=== PATIENT | male | born 1950 | race African-American/Black ===

== ENCOUNTER 2017-01-08 10:11 | Inpatient (IN) ==
[~2017-01-08 10:11] MED LIST: ASPIRIN 325 MG TABLET PO ONE; DIAZEPAM 5 MG TABLET PO ONE; MAGNESIUM SULF RIDER 2 GM in PREMIX 1 EACH IV PRN; POTASSIUM CHLORIDE RIDER 10 MEQ in PREMIX 1 EACH IV PRN; SODIUM CHLORIDE 0.9% 1,000 ML IV SCH; diphenhydrAMINE CAP 25 MG CAPSULE PO ONE
[2017-01-08 11:39] LABS: Basophils % 0.6 % (0.0-0.8); Eosinophils # 0.2 10*3/uL (0.0-0.87); Eosinophils % 2.9 % (0.00-10.9); Hematocrit 32.8 VOL% (42.0-52.0); Hemoglobin 9.7 GM/DL (14.0-18.0); Immature Granulocytes % 0.5 %; Immature Granulocytes Absolute 0.03 #; Lymphocytes # 1.6 10*3/uL (1.4-4.0); Lymphocytes % 25.5 % (21.2-54.2); Mean Corpuscular HGB Conc 29.6 GM/DL (32-36); Mean Corpuscular Hemoglobin 24 PG (27-34); Mean Platelet Volume 10.9 FL (9.6-12.0); Monocytes # 0.5 10*3/uL (0.11-0.8); Monocytes % 8.4 % (1.7-12.7); Neutrophils # 3.9 10*3/uL (1.4-7.4); Neutrophils % 62.1 % (38.7-73.9); Platelet Count 265 T/CUMM (130-400); Red Blood Count 4.05 MC/CUMM (3.8-5.5); Red Cell Distribution Width 16.3 % (9.3-17.3); White Blood Count 6.2 T/CUMM (4-12)
[2017-01-08 11:46] LABS: INR 1.2; PT Patient Result 12.5 SECS
[2017-01-08 12:01] LABS: Osmolality,Calculated 288.8 MOS/KG (273-304); Potassium 3.8 MMOL/L (3.5-5.1)
[2017-01-08] MEDS ORDERED: LIDOCAINE 1% 20 ML VIAL ONE (12:27)
[2017-01-08] MEDS ORDERED: HYDROmorphone 2 MG/1 ML VIAL ONE ×2 (12:28→14:27)
[2017-01-08] MEDS ORDERED: MIDAZOLAM 2 MG/2 ML VIAL ONE (12:28)
[2017-01-08] MEDS ORDERED: ASPIRIN 325 MG TABLET ONE (12:32)
[2017-01-08] MEDS ORDERED: diphenhydrAMINE CAP 25 MG CAPSULE ONE (12:32)
[2017-01-08] MEDS ORDERED: DIAZEPAM 5 MG TABLET ONE (12:33)
[2017-01-08] MEDS ORDERED: HEPARIN 5,000 UNIT/1 ML VIAL ONE (13:27)
[2017-01-08] MEDS ORDERED: NITROGLYCERIN DRIP 50 MG/250 ML BOTTLE IV ONE (13:39)
[2017-01-08] MEDS ORDERED: VERAPAMIL 5 MG/2 ML VIAL ONE (13:39)
[2017-01-08] MEDS ORDERED: TICAGRELOR 90 MG TABLET ONE (14:05)
[2017-01-08] MEDS ORDERED: POTASSIUM CHLORIDE RIDER 10 MEQ in PREMIX 1 EACH IV PRN (15:18)
[2017-01-08] MEDS ORDERED: MAGNESIUM SULF RIDER 2 GM in PREMIX 1 EACH IV PRN (15:18)
[2017-01-08] MEDS ORDERED: HYDROmorphone 2 MG/1 ML VIAL IV PRN (15:19)
[2017-01-08] MEDS ORDERED: ONDANSETRON 4 MG/2 ML VIAL IV PRN (15:19)
[2017-01-08] MEDS ORDERED: ZALEPLON 5 MG CAPSULE PO PRN (15:19)
[2017-01-08] MEDS ORDERED: NITROGLYCERIN SL 0.4 MG TABLET SL PRN (15:19)
[2017-01-08] MEDS ORDERED: SODIUM CHLORIDE 0.45% 1,000 ML IV SCH (15:30)
--- NOTE | 2017-01-08 15:43 | Cardiology Operative Report ---
Date of Procedure:: 01/08/17 Post-op diagnosis: same Procedure: Procedures performed: 1. Right iliac angiography with runoff, and Atherectomy of right superficial femoral artery with 2.0 solid CSI [place] 2. Angioplasty of right SFA with 6 x 1 50 balloon 3. Left femoral arteriotomy closure with Angio-Seal device Brief clinical summary. Mr. Love is a 66-year-old with severe limiting right greater than left lower extremity claudication and noted to have short SFA occlusion during his recent heart catheterization. Description of procedure: After obtaining informed consent the patient transferred to the cath over the left groin was prepped and draped in sterile fashion. Next a short 6 [place] sheath was placed in left femoral artery using a modified Seldinger technique after the patient received IV sedation and local anesthetic. Next a AGUILAR catheter with long stiff Glidewire was advanced into the proximal SFA with only moderate difficulty. The sheath was then changed out for a 45 cm destination sheath with the tip ending up just above the bifurcation of the right common femoral artery. The patient was given 6000 units of heparin and then an additional 1000 of heparin with the initial ACT being 228. Later the procedure he was given another 1000 units of heparin with an ACT of 178. The patient was given aspirin this morning. A command wire was advanced with a 0.14 seeker and with some difficulty and was able to traverse the entire right SFA and advance the wire just below the popliteal segment. I then advanced the seeker and removed the wire replacing it with a Viper wire. I then removed the seeker device. Next a 2.0 systolic [place] was advanced to the proximal SFA and slow passes were made with low, medium, and high across a large patient of the proximal and mid SFA across an area of heavy calcification. Next the CSI device was removed and a 6.0 x 150 balloon was advanced into long inflations were made in the mid to distal and mid to proximal SFA for 2-1/2 and 3 minutes respectively. There was a very good angiographic result, the runoff was suboptimal due to three-vessel occlusion below the knee. This was unclear on the initial angiogram due to suboptimal flow. However the largest branch was the posterior tibial which had a short occlusion proximally. I was able to cross this with command wire and advanced to seeker changing out for the are wire again. However was advancing a 1.5 CSI [place] denizen when "around the morning "the entire guide prolapsed into the descending aorta losing wire position. Given the time with fluoroscopy and dye exposure felt was wisest and at this time. We will stage the posterior tibial intervention for a later time. The AGATA on Brilinta and aspirin for the time being. We will watch closely in the hospital overnight. He tolerated the procedure well with no complications only complaining of some back pain at times. Right iliac angiography: The proximal right iliac and recently been angiograms. The right external iliac was widely patent as was the right common femoral artery. The profundus a large vessel that provides extensive collaterals. The SFA has a long area of subtotal calcific disease in the proximal mid to the beginning of the distal segment of the SFA. There is very sluggish flow here but there is more brisk flow to the profundus with the collaterals filling. The anterior tibial artery appears to be occluded proximally. There is a severe stenosis the proximal portion of the posterior tibial artery. Impression: 1. Long heavily calcified subtotal occlusion of the proximal to early distal right SFA, with filling of distal vasculature by profunda collaterals 2. Occluded right proximal anterior tibial artery 3. Severe stenosis of the proximal PT trunk 4. Status post orbital atherectomy of SFA with 2.0 solid CSI [place] 5. Status post angioplasty of SFA with 6.0 by 150 mm balloon with excellent result (20% residual) Recommendation discussion: I believe we achieved very good result with regard to atherectomy and angioplasty Mr. Love's diffuse calcific SFA disease/subtotal occlusion. However his runoff is suboptimal due to a critical proximal posterior tibial artery lesion. There was transient occlusion of it at the end of the procedure , although there are significant collaterals to the distal vessel. I was able to cross it, but loss wire access while trying to perform atherectomy. We will need to stage this procedure, a later time to address his disease below the knee. Anesthesia: minimal conscious sedation Surgeon / Physician: Severiano Smith Metalizing Machine Operator Automatic: other Estimated blood loss: minimal Specimens: none sent Condition: stable Disposition: floor
[2017-01-08] MEDS ORDERED: INFLUENZA VIRUS VACCINE 0.5 ML SYRINGE IM ONE (16:13)
[2017-01-08] MEDS: INSULIN GLARGINE 100 UNIT/ML SUBCUT SCH (19:04)
[2017-01-08] MEDS: CARVEDILOL 6.25 MG TABLET PO SCH (22:06)
[2017-01-08] MEDS: TICAGRELOR 90 MG TABLET PO SCH (22:06)
[2017-01-08] MEDS: GABAPENTIN 300 MG CAPSULE PO SCH (22:06)
[2017-01-08] MEDS: buPROPion SR 150 MG TABLET PO SCH (22:06)
[2017-01-08] MEDS: FAMOTIDINE 20 MG TABLET PO SCH (22:06)
[2017-01-09 05:04] LABS: Basophils # 0.1 10*3/uL (0.0-0.2); Basophils % 0.7 % (0.0-0.8); Eosinophils # 0.3 10*3/uL (0.0-0.87); Eosinophils % 3.4 % (0.00-10.9); Hematocrit 34.5 VOL% (42.0-52.0); Hemoglobin 10.4 GM/DL (14.0-18.0); Immature Granulocytes % 0.5 %; Immature Granulocytes Absolute 0.04 #; Lymphocytes # 1.7 10*3/uL (1.4-4.0); Lymphocytes % 22.5 % (21.2-54.2); Mean Corpuscular HGB Conc 30.1 GM/DL (32-36); Mean Corpuscular Hemoglobin 24 PG (27-34); Mean Platelet Volume 11.5 FL (9.6-12.0); Monocytes # 0.7 10*3/uL (0.11-0.8); Monocytes % 9.8 % (1.7-12.7); Neutrophils # 4.6 10*3/uL (1.4-7.4); Neutrophils % 63.1 % (38.7-73.9); Platelet Count 271 T/CUMM (130-400); Red Blood Count 4.31 MC/CUMM (3.8-5.5); Red Cell Distribution Width 16.5 % (9.3-17.3); White Blood Count 7.3 T/CUMM (4-12)
[2017-01-09 05:25] LABS: Calcium 8.8 MG/DL (8.5-10.1); Osmolality,Calculated 287.3 MOS/KG (273-304); Potassium 4.5 MMOL/L (3.5-5.1)
[2017-01-09] MEDS ORDERED: INSULIN GLARGINE HUM REC ANLOG 80 UNIT SUBCUT SCH (07:30)
[2017-01-09] MEDS ORDERED: FUROSEMIDE 40 MG/4 ML VIAL IV ONE ×3 (08:11→16:26)
--- NOTE | 2017-01-09 08:18 | Discharge Summary ---
<Severiano Smith Jonathan - Last Filed: 01/09/17 08:15> Hospital Course - Hospital Course Hospital Course: Mr. Love was admitted with limiting right lower extreme claudication. He underwent angiography on January 08 and was found to have long heavily calcified proximal to mid and early distal right SFA subtotal disease. This was treated with orbital atherectomy with 2.0 CSI crown. A 6 x 150 mm balloon was used with a very good result. However, he had proximal anterior tibial occlusion, and a critical proximal stenosis of the PT trunk. This occluded after procedure, but was opened with a wire and seeker catheter. I plan to perform atherectomy of the 1.5 crown, but the guide prolapsed into the descending aorta. Given the significant edema dye the patient received ice I was best to stage this intervention. Today his groin looks good and he reports walking to the bathroom with less discomfort. His blood pressure is elevated to 150s will probably need to be managed. He has a little shortness of breath likely related to the IV fluids he received. I will give him one IV Lasix dose prior to discharge. He will need to take his aspirin Brilinta without fail. He 'll need to avoid squatting or lifting for 6 days and I discussed that with he and his . At this time I believe he received maximal benefit discharged home. Specialty Discharge - Follow Up or Referrals Follow up with: Wen Virgen MD [Physician] - 01/21/17 7:15 pm (This is the appt for your sleep study. Go to admissions. Bring home medications and comfortable clothes to sleep in. ) Discharge Plan - Discharge Data Disposition: Disch To Home/Self Care - Discharge Medications New Carvedilol 12.5 mg PO BID #60 tablet Aspirin EC Tab 81 mg PO DAILY #100 tablet Furosemide Tab [Lasix Tab] 80 mg PO BID DIURETIC #60 tablet cephALEXin [Keflex] 500 mg PO Q12HR #10 capsule Continue Metformin HCl 1,000 mg PO BID W/MEALS Gabapentin 300 mg PO BID Amlodipine Besylate/Benazepril [Amlodipine-Benazepril 10-20 mg] 5 mg PO DAILY Dextromethorphan HBr/Chlor-Mal [Coricidin Hbp Cough & Cold Tab] 1 tablet PO BID Insulin Glargine,Hum.rec.anlog [Toujeo SoloStar] 20 units SUBCUT AC SUPPER Insulin Glargine,Hum.rec.anlog [[place]] 80 units SUBCUT AC BREAKFAST HYDROcodone/ACETAMIN 10-325 [[place] 10-325] 1 tablet PO Q6HR PRN PRN Reason: Pain Mild To Moderate (1-7) Spironolactone 25 mg PO DAILY Atorvastatin [Lipitor] 40 mg PO DAILY buPROPion SR [Wellbutrin Sr] 1 tablet PO BID Ticagrelor [Brilinta] 90 mg PO BID 30 Days Discontinued Furosemide 40 mg PO BID Carvedilol [Coreg] 6.25 mg PO BID - Follow Up or Referral Follow Up: Wen Virgen MD [Physician] - 01/21/17 7:15 pm (This is the appt for your sleep study. Go to admissions. Bring home medications and comfortable clothes to sleep in. ) - Forms/Instructions Instructions: Heart Failure (DC), Atherectomy (DC) Exam - Constitutional Vitals: Period Temp Pulse Resp BP Sys/Nagel Pulse Ox Last 24 Hr 97.3 F-98.5 F 69-84 16-22 108-143/64-92 94-100 General appearance: no acute distress, over weight - Head Head exam: Present: normal inspection, normocephalic, atraumatic - Neck Neck exam: Present: normal inspection - Respiratory Respiratory exam: Present: clear to auscultation bilaterally, decreased breath sounds. Absent: stridor, wheezes - Cardiovascular Cardiovascular exam: Present: regular rate and rhythm. Absent: diastolic murmur , rubs - GI/Abdominal GI/Abdominal exam: Present: soft. Absent: tenderness - Extremities Exam Extremities exam: Present: edema, other (right foot is warm with edema and weak to absent pulses (no change); left groin without bruit or hematoma) Discharge Results Procedures and tests throughout hospitalization: Pending Orders 01/10/17 MRSA Surveillence, Inf Control Routine 01/11/17 07:20 CL pacemaker Routine Labs on day of discharge: Labs from last 24 hours 01/12/17 01/12/17 01/12/17 07:39 02:54 02:54 WBC 7.4 RBC 3.99 Hgb 9.5 L Hct 32.4 L MCV 81.2 L MCH 24 L MCHC 29.3 L RDW 16.9 Plt Count 233 MPV 11.4 Neut % (Auto) 69.4 Lymph % (Auto) 17.7 L [place] % (Auto) 8.8 Eos % (Auto) 3.2 Baso % (Auto) 0.5 Neut # (Auto) 5.2 Lymph # (Auto) 1.3 L [place] # (Auto) 0.7 Eos # (Auto) 0.2 Baso # (Auto) 0.0 Immature Gran % 0.4 Nucleated RBC % 0.0 Immature Gran # 0.03 Nucleated RBCs # 0.00 Sodium 143 Potassium 4.3 Chloride 103 Carbon Dioxide 31 Anion Gap 13.3 BUN 18 Creatinine 1.20 GFR Calculation 115 BUN/Creatinine Ratio 15.00 Glucose 97 POC Glucose 66 L Calculated Osmolality 286.0 Calcium 8.8 Magnesium 2.1 01/11/17 01/11/17 01/11/17 20:48 16:22 11:40 WBC RBC Hgb Hct MCV MCH MCHC RDW Plt Count MPV Neut % (Auto) Lymph % (Auto) [place] % (Auto) Eos % (Auto) Baso % (Auto) Neut # (Auto) Lymph # (Auto) [place] # (Auto) Eos # (Auto) Baso # (Auto) Immature Gran % Nucleated RBC % Immature Gran # Nucleated RBCs # Sodium Potassium Chloride Carbon Dioxide Anion Gap BUN Creatinine GFR Calculation BUN/Creatinine Ratio Glucose POC Glucose 175 H 189 H 136 H Calculated Osmolality Calcium Magnesium Preliminary micro results at discharge 01/10/17 Unknown MRSA Surveillance Culture - Preliminary Nares No MRSA isolated. DS: Provider Primary care physician: Paige Marina Consults: 01/08/17 17:52 Consult to Sleep Center [CONS] Routine Reason for Sleep Center: Sleep Center Physician 01/10/17 16:51 Consult to Anesthesiology [CONS] Routine Consulting Provider: Reason for Anesthesiology: Other Consult Comment: Etienne dominguez anes for biV-ICD in lab specialist [id number] Discharging clinician: Severiano Chawla <Jyoti Garcia - Last Filed: 01/09/17 16:06> Discharge Results Procedures and tests throughout hospitalization: Pending Orders 01/10/17 MRSA Surveillence, Inf Control Routine 01/11/17 07:20 CL pacemaker Routine <Balaji Clifton - Last Filed: 01/12/17 09:53> Hospital Course - Hospital Course Hospital Course: He also had persistent CHF symptoms. Due to nonischemic cardiomyopathy, ejection fraction 35%, intermittent AV block, high percent V pacing, despite GDMT, he underwent upgrade of his dual-chamber pacemaker into a NEUROSURGERY RESEARCH DIRECTOR-D. There were no complications. Chest x-ray showed no pneumothorax, normal lead positions. Device interrogation : normal NEUROSURGERY RESEARCH DIRECTOR-D function. Labs remained at his baseline. There was no hematoma. He was also tested for obstructive sleep apnea, with HST. Follow-up with Dr. Virgen's office, results pending. He will follow-up in one week, with dr. Clifton and dr. Smith. Post ICD implant activity limitations and implant site care were discussed. We will continue Keflex 500 mg bid for 5 days for high infectious risk for recent NEUROSURGERY RESEARCH DIRECTOR-D upgrade. MRSA screen was negative. We will keep Lasix 80 mg twice a day for now, due to 3+ lower extremity edema, when this improves, we will decrease the dose. Diagnosis - Discharge Diagnosis (1) Complete AV block Status: Chronic (2) Essential hypertension Status: Chronic (3) Diabetes mellitus Status: Chronic (4) Congestive heart failure, acute Status: Chronic (5) Sleep apnea, unspecified Status: Chronic (6) PVD (peripheral vascular disease) Status: Chronic (7) NICM (nonischemic cardiomyopathy) Status: Chronic Specialty Discharge - Speciality Discharge Instructions Cardiology Instructions: Follow up with dr. Clifton and dr. Smith on 01/17 or 01/18 - please make sure to schedule to see us both at the same time. Needs ICD check , ECG, BMP/Mg Discharge Plan - Discharge Data Condition at Discharge: Stable Discharge Diet: advance to your usual diet Activity: no lifting (for 1 week) Hygiene: keep area(s) dry (keep ICD implant site dry and dressing in place for 1 week. No hot tub or showers for 1 week) Weight Bearing at Discharge: full weight bearing Driving: not until seen by doctor Contact your physician if you experience:: fever over 101, Difficulty voiding, Redness or swelling, Nausea/Vomiting, Shortness of breath, Bleeding, pain uncontrolled by pain medications Exam - Constitutional General appearance: no acute distress, morbidly obese - Head Head exam: Present: normal inspection, normocephalic, atraumatic - Eye Eye exam: Absent: conjunctival injection Pupils: Absent: dilated - ENT ENT exam: Present: normal external ear exam - Neck Neck exam: Present: normal inspection - Respiratory Respiratory exam: Present: clear to auscultation bilaterally - Cardiovascular Cardiovascular exam: Present: regular rate and rhythm. Absent: systolic murmur - GI/Abdominal GI/Abdominal exam: Present: normal bowel sounds - Extremities Exam Extremities exam: Present: normal inspection, normal capillary refill, edema (3+ ) - Neurological Exam Neurological exam: Present: alert, oriented X3 - Psychiatric Psychiatric exam: Present: normal affect, normal mood - Skin Skin exam: Present: normal color, warm, other (no icd hematoma). Absent: cyanosis Discharge Results - Imaging and Cardiology Cardiology Procedure: image reviewed by me, report reviewed by me DS: Provider Expected date of discharge: 01/12/17
[2017-01-09] MEDS: FAMOTIDINE 20 MG TABLET PO SCH ×2 (08:38→21:02)
[2017-01-09] MEDS: ASPIRIN EC 81 MG TABLET PO SCH (08:39)
[2017-01-09] MEDS: ATORVASTATIN 40 MG TABLET PO SCH (08:39)
[2017-01-09] MEDS: CARVEDILOL 6.25 MG TABLET PO SCH ×2 (08:39→21:02)
[2017-01-09] MEDS: GABAPENTIN 300 MG CAPSULE PO SCH ×2 (08:39→21:02)
[2017-01-09] MEDS: buPROPion SR 150 MG TABLET PO SCH ×2 (08:39→21:02)
[2017-01-09] MEDS: TICAGRELOR 90 MG TABLET PO SCH ×2 (08:39→21:02)
--- NOTE | 2017-01-09 14:49 | XRay Report ---
Single view the chest. Indication: Shortness of breath. Bilateral lower extremity edema. Comparison: December 04, 2015. The heart is enlarged, increased from the previous. The pulmonary vasculature is prominent. The interstitial lung markings are prominent. Pleural effusion is suspected. Cardiac hardware remains in satisfactory position. Stable osseous structures. Impression: Findings consistent with congestive heart failure. PROCEDURE INTERPRETED AT [facility] DEPARTMENT OF RADIOLOGY Final Report Signed by: Dr. Maryana Child
--- NOTE | 2017-01-09 16:20 | Sleep Medicine Consult ---
Assessment and Plan (1) Sleep apnea, unspecified Status: Acute Assessment and plan: This patient does have symptoms concerning for sleep apnea and with his comorbidities and current condition, I do think we should proceed with HST evaluation tonight if he is to remain hospitalized. If not, we will set him up for outpatient sleep study evaluation as soon as possible. It is hopeful that if we can establish a diagnosis tonight, we may be able to set him up with CPAP after discharge. Current Visit: Yes (2) Essential hypertension Status: Acute Assessment and plan: The prevalence rate for obstructive sleep apnea patients with hypertension is 35 %. That rate can be as high as 80% in patients who require 4 or more medications for blood pressure control. Current Visit: No (3) Diabetes mellitus Status: Acute Assessment and plan: The prevalence rate for obstructive sleep apnea in patients with type 2 diabetes can be as high as 86%. Those patients with moderate to severe obstructive sleep apnea are at a greater risk for diabetic nephropathy and neuropathy. Compliance with CPAP therapy for these patients can lead to improvement in glycemic control and improvement in insulin sensitivity. Current Visit: No (4) Congestive heart failure, acute Status: Acute Assessment and plan: This patient does have symptoms concerning for acute congestive heart failure. He has had documented normal LV function by previous heart cath but has significant lower extremity edema and has had symptoms of orthopnea and PND. Some of the symptoms could've been untreated obstructive sleep apnea. We'll follow-up on HST results and follow-up with him in the sleep clinic after discharge. Current Visit: No History of Present Illness Chief complaint: sleep apnea History of present illness: Mr. Bernard is a 66 year old male with history of congestive cardiomyopathy who is admitted for elective intervention with peripheral arterial disease. Dr. Smith asked sleep medicine to evaluate him. He does have a history of snoring and abnormal breathing during sleep. He usually retires after 11 p.m. and will awaken about 5 in the morning. He awakens multiple times during the night secondary to shortness of breath or need to urinate. He awakens sometimes and sits bolt upright on the side of the bed because of severe shortness of breath. He does have a history of daytime fatigue and sleepiness and usually will fall asleep when he sits still. He clearly has an [place] sleepiness score of at least 12 or greater. He does have chronic issues with swelling of his lower extremities and is treated for heart disease and hypertension and lower extremity edema. He has had previous pacemaker placed for complete heart block. He did undergo previous heart cath and has normal LV function though he did have evidence of cardiac enlargement. He has never had previous sleep evaluation in the past. He resides in [place], [place]. Home Medications Medication Instructions Recorded Confirmed Type Amlodipine Besylate/Benazepril 5 mg PO DAILY 12/05/15 01/08/17 History [Amlodipine-Benazepril 10-20 mg] Furosemide 40 mg PO BID 12/05/15 01/08/17 History Gabapentin 300 mg PO BID 12/05/15 01/08/17 History Metformin HCl 1,000 mg PO BID W/MEALS 12/05/15 01/08/17 History Atorvastatin [Lipitor] 40 mg PO DAILY 01/08/17 01/08/17 History Dextromethorphan HBr/Chlor-Mal 1 tablet PO BID 01/08/17 01/08/17 History [Coricidin Hbp Cough & Cold Tab] HYDROcodone/ACETAMIN 10-325 [[place] 1 tablet PO Q6HR PRN 01/08/17 01/08/17 History 10-325] Insulin Glargine,Hum.rec.anlog 20 units SUBCUT AC SUPPER 01/08/17 01/08/17 History [Toujeo SoloStar] Insulin Glargine,Hum.rec.anlog 80 units SUBCUT AC BREAKFAST 01/08/17 01/08/17 History [Toujeo SoloStar] Spironolactone 25 mg PO DAILY 01/08/17 01/08/17 History buPROPion SR [Wellbutrin Sr] 1 tablet PO BID 01/08/17 01/08/17 History Aspirin EC Tab 81 mg PO DAILY #100 tablet 01/09/17 Rx Carvedilol 12.5 mg PO BID #60 tablet 01/09/17 Rx Ticagrelor [Brilinta] 90 mg PO BID 30 Days 01/09/17 Rx Allergies Allergy/AdvReac Type Severity Reaction Status Date / Time No Known Allergies Allergy Verified 01/08/17 10:44 Review of systems: Notable for difficulty maintaining sleep, daytime fatigue and sleepiness, lower extremity swelling, nocturia. Exam (Pulmonay) H&P - Constitutional Vitals: Period Temp Pulse Resp BP Sys/Nagel Pulse Ox Last 24 Hr 96.6 F-97.6 F 71-85 14-20 136-169/76-113 98-100 Exam: He is alert and responsive in no acute distress. Pupils equal round reactive to light and accommodation. Extraocular movements intact. Oropharynx with class IV Mallampati exam. Neck is supple without adenopathy or thyromegaly. No supraclavicular adenopathy is noted. Chest with symmetrical breath sounds without focal wheezes, rhonchi, or rales. Cardiac exam reveals a regular rhythm without murmur or gallop. Abdomen obese nontender without palpable hepatosplenomegaly or mass. Extremities with bilateral pitting edema. Neurologically, he is grossly intact. He moved all extremities with good strength and answered questions appropriately. Medical,Surgical,& Family Hx - Medical History Cardio: History of: Hypertension, Pacemaker Neurology: No history of: Seizures Endocrine: History of: Diabetes Mellitus (NIDDM) Respiratory: History of: COPD Musculoskeletal: History of: Back/Neck Problems (lower chronic) - Surgical History Cardiac Surgeries: Sugical HX of: Cardiac Catheterization HEENT Surgeries: Surgical HX of: Eye Surgery Orthopedic Surgeries: Surgical HX of;: Orthopedic Surgery (foot pinning), Spinal Surgery - Family History Family History: Reports;: Family Diabetes (brother), Family Stroke (brother) - Social History Smoking Status: Current every day smoker Frequency of Alcohol Use: None Type of Drug Use: None Results - Labs CBC & BMP: 01/09/17 03:59 01/09/17 03:59
--- NOTE | 2017-01-09 16:28 | Event Note ---
Patient was admitted for elective peripheral vascular procedure. Dr. Smith performed said procedure 01/08/2017. He received IV fluids post procedure. This morning he has had some shortness of breath and orthopnea. He has been given 40 mg of IV Lasix and diuresed little. Chest x-ray was ordered which revealed congestive heart failure. He does have ejection fraction noted to be 35% per most recent echo in November 2016. IV fluids of been discontinued as he was getting hydrated postprocedure. I will restart his for a white count and give an additional 40 mg of IV Lasix. Labs tomorrow with strict I&O. Patient denies chest pain, heaviness or tightness.
[2017-01-09] MEDS: INSULIN GLARGINE 100 UNIT/ML SUBCUT SCH (16:50)
[2017-01-09] MEDS: SPIRONOLACTONE 25 MG TABLET PO SCH (16:50)
[2017-01-10 04:43] LABS: Basophils # 0.1 10*3/uL (0.0-0.2); Eosinophils # 0.3 10*3/uL (0.0-0.87); Eosinophils % 4.1 % (0.00-10.9); Hematocrit 33.2 VOL% (42.0-52.0); Hemoglobin 9.8 GM/DL (14.0-18.0); Immature Granulocytes % 0.5 %; Immature Granulocytes Absolute 0.03 #; Lymphocytes # 1.3 10*3/uL (1.4-4.0); Lymphocytes % 21.2 % (21.2-54.2); Mean Corpuscular HGB Conc 29.5 GM/DL (32-36); Mean Corpuscular Hemoglobin 24 PG (27-34); Mean Platelet Volume 11.2 FL (9.6-12.0); Monocytes # 0.6 10*3/uL (0.11-0.8); Monocytes % 9.5 % (1.7-12.7); Neutrophils # 3.9 10*3/uL (1.4-7.4); Neutrophils % 63.7 % (38.7-73.9); Platelet Count 247 T/CUMM (130-400); Red Cell Distribution Width 16.6 % (9.3-17.3); White Blood Count 6.1 T/CUMM (4-12)
[2017-01-10 05:23] LABS: Calcium 8.7 MG/DL (8.5-10.1); Magnesium 2.2 MG/DL (1.8-2.4)
--- NOTE | 2017-01-10 07:43 | Sleep Medicine Progress Note ---
Assessment and Plan (1) Sleep apnea, unspecified Status: Acute Assessment and plan: Plans will be based on HST results. If positive for obstructive sleep apnea, he will be prescribed an auto titration CPAP device and [facility] will set him up. He will then have follow-up in the sleep clinic for compliance and management of sleep apnea. If his HST is negative, he will be set up for outpatient polysomnography at the next available date. Current Visit: Yes (2) Essential hypertension Status: Acute Current Visit: No (3) Diabetes mellitus Status: Acute Current Visit: No (4) Congestive heart failure, acute Status: Acute Current Visit: No Sleep Medicine Subjective Interval history: She underwent HST evaluation last night. We will review those results. If he does have obstructive sleep apnea, he'll be set up with an AutoPap device and scheduled for follow-up in the sleep clinic. I think it very likely that he will have sleep apnea. If the HST is negative, he will need outpatient polysomnography. Exam (Progress Note) - Constitutional Vitals: Period Temp Pulse Resp BP Sys/Nagel Pulse Ox Last 24 Hr 96.8 F-98.2 F 73-83 16-20 127-159/64-83 95-100 Exam: He is alert and responsive in no distress. Pupils equal round reactive to light and accommodation. Extraocular movements intact. He has a class IV Mallampati exam. Neck is supple without adenopathy or thyromegaly. No supraclavicular adenopathy is noted. Chest with symmetrical breath sounds without focal wheezes, rhonchi, or rales. Cardiac exam reveals a regular rhythm without murmur or gallop. Abdomen obese nontender extremity is with pitting edema. Results - Labs CBC & BMP: 01/10/17 04:11 01/10/17 04:11 Lab Results: I have reviewed the past 24 hour labs
[2017-01-10] MEDS: TICAGRELOR 90 MG TABLET PO SCH ×2 (09:33→20:45)
[2017-01-10] MEDS: ASPIRIN EC 81 MG TABLET PO SCH (09:33)
[2017-01-10] MEDS: CARVEDILOL 6.25 MG TABLET PO SCH (09:33)
[2017-01-10] MEDS: buPROPion SR 150 MG TABLET PO SCH ×2 (09:34→20:45)
[2017-01-10] MEDS: SPIRONOLACTONE 25 MG TABLET PO SCH (09:34)
[2017-01-10] MEDS: FAMOTIDINE 20 MG TABLET PO SCH ×2 (09:34→20:45)
[2017-01-10] MEDS: GABAPENTIN 300 MG CAPSULE PO SCH ×2 (09:34→20:45)
[2017-01-10] MEDS: ATORVASTATIN 40 MG TABLET PO SCH (09:34)
--- NOTE | 2017-01-10 14:09 | Cardiology Progress Note ---
<Jyoti Garcia E - Last Filed: 01/10/17 14:16> Assessment and Plan (1) PVD (peripheral vascular disease) Status: Chronic Assessment and plan: SEE PLAN OF CARE LISTED BELOW Current Visit: Yes (2) NICM (nonischemic cardiomyopathy) Status: Chronic Assessment and plan: SEE PLAN OF CARE LISTED BELOW Current Visit: Yes (3) Sleep apnea, unspecified Status: Chronic Assessment and plan: SEE PLAN OF CARE LISTED BELOW Current Visit: Yes (4) Complete AV block Status: Chronic Assessment and plan: SEE PLAN OF CARE LISTED BELOW Current Visit: No (5) Congestive heart failure, acute Status: Chronic Assessment and plan: SEE PLAN OF CARE LISTED BELOW Current Visit: No (6) Diabetes mellitus Status: Chronic Assessment and plan: SEE PLAN OF CARE LISTED BELOW Current Visit: No (7) Essential hypertension Status: Chronic Assessment and plan: SEE PLAN OF CARE LISTED BELOW Current Visit: No Cardiology - PN: Subj Interval history: Mr. Love was admitted every [address] Smith for elective peripheral vascular procedure for complaints of severe claudication. He underwent angiography and was found to have long heavily calcified proximal to mid and early distal right SFA subtotal disease. This was treated with orbital atherectomy with 2.0 CSI crown. A 6 x 150 mm balloon was used with a very good result. However, he had proximal anterior tibial occlusion, and a critical proximal stenosis of the PT trunk. This occluded after procedure, but was opened with a wire and seeker catheter. I plan to perform atherectomy of the 1.5 crown, but the guide prolapsed into the descending aorta. Given the significant edema, significant amount of dye the patient received it was felt best to stage this intervention. He was kept last evening for significant lower extremity swelling, orthopnea. Chest x-ray revealed congestive heart failure. He was given IV Lasix, oral spironolactone was restarted and he diuresed well. However, he still has a significant amount of lower extremity swelling. His breathing is not quite to his baseline though it is much improved. He reports he did diurese a significant amount of urine done and daily weight was obtained. At this point, he is agreeable to stay one more day for continued IV diuresis. Hopefully, he will be ready for discharge in the morning. She is the pacing chronically. Given the EF of 35% he may be a candidate for about the ICD upgrade. When he sees Dr. Smith in clinic he may consider this option. History of nonischemic cardiomyopathy, EF 35-40% per heart catheterization performed in November 2015. He is also status post pacemaker plantation November 2015 for third degree heart block. ASSESSMENT/PLAN: 1. PVD - See above for future plan of care addressing the PVD in a staged fashion 2. NICM - EF 35% - 40%. 3. CHF, ACUTE ON CHRONIC - secondary to decreased LVEF (35%-40%), NYHA Class III. Continue with IV diuretics, home meds. 4. HYPERTENSION - Increasing betablockade dose for better control of BP 5. DYSLIPIDEMIA - continue lipid lowering agent 6. TOBACCOISM - the merits of cessation of tobacco use was thoroughly discussed for greater than 5 minutes 7. SLEEP DISORDER - appreciate Dr. Virgen's assistance. Exam (Progress Note) - Constitutional Vitals: Period Temp Pulse Resp BP Sys/Nagel Pulse Ox Last 24 Hr 96.8 F-98.2 F 73-83 16-22 127-143/64-83 95-100 Exam: General: Appears well with no apparent distress. Pleasant and cooperative. Appears comfortable. HEENT: PERRL, normocephalic, atraumatic. Mucous membranes moist. No jaundice noted. Conjunctiva moist and clear, sclerae anicteric Neck: Difficult to assess for JVD due to habitus. No thyromegaly or lymphadenopathy noted. No carotid bruit appreciated Cardiac: Regular rate and rhythm. No murmur rub or gallop. Lungs: Inspiratory crackles noted in bases. Continues to using oxygen. Abdomen: Soft, bowel sounds normoactive. Nontender and nondistended. No abdominal bruit or thrill noted. No masses noted. Musculoskeletal: No fluid collection. Decreased range of motion is noted. Extremities: No clubbing, cyanosis noted. 2-3+ pitting edema. Upper extremity pulses 2+. Lower extremity pulses 1+. Capillary refill less than 3 seconds. Skin: No unusual lesions or rashes. No skin breakdown appreciated. Neuro: Awake, alert and oriented 3. Moves all extremities well without hemiparesis or paralysis. No essential tremor is appreciated. Result/EKG - Labs CBC & BMP: 01/10/17 04:11 01/10/17 04:11 Lab Results: I have reviewed the past 24 hour labs Labs: Laboratory Results - last 24 hr 01/09/17 01/09/17 01/10/17 16:00 19:30 04:11 WBC 6.1 RBC 4.10 Hgb 9.8 L Hct 33.2 L MCV 81.0 L MCH 24 L MCHC 29.5 L RDW 16.6 Plt Count 247 MPV 11.2 Neut % (Auto) 63.7 Lymph % (Auto) 21.2 [place] % (Auto) 9.5 Eos % (Auto) 4.1 Baso % (Auto) 1.0 H Neut # (Auto) 3.9 Lymph # (Auto) 1.3 L [place] # (Auto) 0.6 Eos # (Auto) 0.3 Baso # (Auto) 0.1 Immature Gran % 0.5 Nucleated RBC % 0.0 Immature Gran # 0.03 Nucleated RBCs # 0.00 Sodium Potassium Chloride Carbon Dioxide Anion Gap BUN Creatinine GFR Calculation BUN/Creatinine Ratio Glucose POC Glucose 183 H 282 H Calculated Osmolality Calcium Magnesium B-Natriuretic Peptide 01/10/17 01/10/17 01/10/17 04:11 04:11 07:35 WBC RBC Hgb Hct MCV MCH MCHC RDW Plt Count MPV Neut % (Auto) Lymph % (Auto) [place] % (Auto) Eos % (Auto) Baso % (Auto) Neut # (Auto) Lymph # (Auto) [place] # (Auto) Eos # (Auto) Baso # (Auto) Immature Gran % Nucleated RBC % Immature Gran # Nucleated RBCs # Sodium 143 Potassium 4.0 Chloride 105 Carbon Dioxide 29 Anion Gap 13.0 BUN 19 H Creatinine 0.90 GFR Calculation 163 BUN/Creatinine Ratio 21.00 H Glucose 100 POC Glucose 76 Calculated Osmolality 286.0 Calcium 8.7 Magnesium 2.2 B-Natriuretic Peptide 485 H 01/10/17 11:11 WBC RBC Hgb Hct MCV MCH MCHC RDW Plt Count MPV Neut % (Auto) Lymph % (Auto) [place] % (Auto) Eos % (Auto) Baso % (Auto) Neut # (Auto) Lymph # (Auto) [place] # (Auto) Eos # (Auto) Baso # (Auto) Immature Gran % Nucleated RBC % Immature Gran # Nucleated RBCs # Sodium Potassium Chloride Carbon Dioxide Anion Gap BUN Creatinine GFR Calculation BUN/Creatinine Ratio Glucose POC Glucose 139 H Calculated Osmolality Calcium Magnesium B-Natriuretic Peptide - Diagnostic Findings Procedure: Chest x-ray: report reviewed by me - EKG EKG results: interpreted by me EKG shows: sinus rhythm Specialty Discharge - Follow Up or Referrals <Balaji Clifton - Last Filed: 01/10/17 15:58> Exam (Progress Note) - Constitutional Vitals: Period Temp Pulse Resp BP Sys/Nagel Pulse Ox Last 24 Hr 96.8 F-98.2 F 73-83 16-22 127-143/64-83 95-100 Result/EKG - Labs CBC & BMP: 01/10/17 04:11 01/10/17 04:11 Labs: Laboratory Results - last 24 hr 01/09/17 01/09/17 01/10/17 16:00 19:30 04:11 WBC 6.1 RBC 4.10 Hgb 9.8 L Hct 33.2 L MCV 81.0 L MCH 24 L MCHC 29.5 L RDW 16.6 Plt Count 247 MPV 11.2 Neut % (Auto) 63.7 Lymph % (Auto) 21.2 [place] % (Auto) 9.5 Eos % (Auto) 4.1 Baso % (Auto) 1.0 H Neut # (Auto) 3.9 Lymph # (Auto) 1.3 L [place] # (Auto) 0.6 Eos # (Auto) 0.3 Baso # (Auto) 0.1 Immature Gran % 0.5 Nucleated RBC % 0.0 Immature Gran # 0.03 Nucleated RBCs # 0.00 Sodium Potassium Chloride Carbon Dioxide Anion Gap BUN Creatinine GFR Calculation BUN/Creatinine Ratio Glucose POC Glucose 183 H 282 H Calculated Osmolality Calcium Magnesium B-Natriuretic Peptide 01/10/17 01/10/17 01/10/17 04:11 04:11 07:35 WBC RBC Hgb Hct MCV MCH MCHC RDW Plt Count MPV Neut % (Auto) Lymph % (Auto) [place] % (Auto) Eos % (Auto) Baso % (Auto) Neut # (Auto) Lymph # (Auto) [place] # (Auto) Eos # (Auto) Baso # (Auto) Immature Gran % Nucleated RBC % Immature Gran # Nucleated RBCs # Sodium 143 Potassium 4.0 Chloride 105 Carbon Dioxide 29 Anion Gap 13.0 BUN 19 H Creatinine 0.90 GFR Calculation 163 BUN/Creatinine Ratio 21.00 H Glucose 100 POC Glucose 76 Calculated Osmolality 286.0 Calcium 8.7 Magnesium 2.2 B-Natriuretic Peptide 485 H 01/10/17 11:11 WBC RBC Hgb Hct MCV MCH MCHC RDW Plt Count MPV Neut % (Auto) Lymph % (Auto) [place] % (Auto) Eos % (Auto) Baso % (Auto) Neut # (Auto) Lymph # (Auto) [place] # (Auto) Eos # (Auto) Baso # (Auto) Immature Gran % Nucleated RBC % Immature Gran # Nucleated RBCs # Sodium Potassium Chloride Carbon Dioxide Anion Gap BUN Creatinine GFR Calculation BUN/Creatinine Ratio Glucose POC Glucose 139 H Calculated Osmolality Calcium Magnesium B-Natriuretic Peptide
[2017-01-10] MEDS: ENOXAPARIN 40 MG/0.4 ML SYRINGE SUBCUT SCH ×2 (14:51→15:02)
[2017-01-10] MEDS: FUROSEMIDE 40 MG/4 ML VIAL IV SCH ×2 (15:02→15:06)
[2017-01-10] MEDS: INSULIN GLARGINE 100 UNIT/ML SUBCUT SCH (17:09)
[2017-01-10] MEDS: CARVEDILOL 12.5 MG TABLET PO SCH (20:45)
[2017-01-11] MEDS ORDERED: PROPOFOL 200 MG/20 ML VIAL IV ONE (03:04)
[2017-01-11] MEDS ORDERED: ETOMIDATE 20 MG/10 ML VIAL IV ONE (03:04)
[2017-01-11] MEDS ORDERED: ONDANSETRON 4 MG/2 ML VIAL ONE (03:04)
[2017-01-11 03:43] LABS: Basophils # 0.1 10*3/uL (0.0-0.2); Basophils % 0.8 % (0.0-0.8); Eosinophils # 0.2 10*3/uL (0.0-0.87); Eosinophils % 3.9 % (0.00-10.9); Hematocrit 32.1 VOL% (42.0-52.0); Hemoglobin 9.7 GM/DL (14.0-18.0); Immature Granulocytes % 0.5 %; Immature Granulocytes Absolute 0.03 #; Lymphocytes # 1.4 10*3/uL (1.4-4.0); Lymphocytes % 22.8 % (21.2-54.2); Mean Corpuscular HGB Conc 30.2 GM/DL (32-36); Mean Corpuscular Hemoglobin 24 PG (27-34); Mean Corpuscular Volume 78.5 FL (87-102); Mean Platelet Volume 11.5 FL (9.6-12.0); Monocytes # 0.5 10*3/uL (0.11-0.8); Monocytes % 7.8 % (1.7-12.7); Neutrophils % 64.2 % (38.7-73.9); Platelet Count 240 T/CUMM (130-400); Red Blood Count 4.09 MC/CUMM (3.8-5.5); Red Cell Distribution Width 16.6 % (9.3-17.3); White Blood Count 6.2 T/CUMM (4-12)
[2017-01-11 03:52] LABS: Calcium 9.3 MG/DL (8.5-10.1); Magnesium 2.3 MG/DL (1.8-2.4); Osmolality,Calculated 287.1 MOS/KG (273-304); Potassium 4.3 MMOL/L (3.5-5.1)
[2017-01-11 04:09] LABS: INR 1.1; PT Patient Result 12.2 SECS; Partial Thromboplastin Time 29.3 SECS (0-40)
[2017-01-11] MEDS ORDERED: ceFAZolin 1,000 MG VIAL IRRIG ONE (06:00)
[2017-01-11] MEDS ORDERED: HEPARIN/NACL 0.9% 2 UNITS/ML 500 ML IV ONE ×2 (07:33→08:16)
[2017-01-11] MEDS ORDERED: LIDOCAINE 1% 20 ML VIAL ONE ×2 (07:33→09:56)
[2017-01-11] MEDS ORDERED: ceFAZolin 1,000 MG VIAL ONE ×2 (07:34→08:17)
--- NOTE | 2017-01-11 07:41 | History and Physical Update ---
Sedation H&P Update - History and Physical H&P was reviewed, the patient examined and there: are no changes in the patients condition since last H&P was completed. - Dictation Physical: refer to H&P completed by admitting physician - Physical Exam Mental Status: alert and oriented Heart: regular rate and rhythm Lung: clear to auscultation Abdomen: within normal limits Vitals: within normal limits - Sedation Plan for Sedation: MAC Patient Consent: Procedure disscussed with patient and patinet has consented., Risks and benefits were discussed with patient,including infection,, bleeding, injury to surrounding structures, seizure, temporary nerve, Patient understands and accepts potential risks/benefits and agrees to ASA Class: IV Airway Assessment: Class III: Soft palate, base of uvula visible
[2017-01-11] MEDS ORDERED: LIDOCAINE 1%/EPI INJ 20 ML VIAL ONE (09:59)
[2017-01-11] MEDS ORDERED: TISSUE ADHESIVE 1 EACH APPLICATOR TOP ONE (10:19)
[2017-01-11] MEDS ORDERED: oxyCODONE/ACETAMINOPHEN 5-325 MG TABLET PO PRN (10:30)
[2017-01-11] MEDS ORDERED: DEXTROSE 50% 25 GM/50 ML VIAL IV PRN (10:30)
[2017-01-11] MEDS ORDERED: GLUCAGON 1 MG VIAL IM PRN (10:30)
--- NOTE | 2017-01-11 10:45 | Cardiac Defibrillator ---
- Preoperative diagnosis Date of Procedure:: 01/11/17 Preop Diagnosis: non-ischemic dilated cardiomyopathy > 9 months, NYHA class II and III heart failure, and a measured LVEF less than or equal to 35% Pre-op Diagnosis: 1avb, Intermittent 3avb S/P ddd PM, 100% vPACED Post-op diagnosis: same Procedure: PROCEDURAL SUMMARY Left axillary venogram Upgrade to biventricular ICD from DDD pacemaker: addition of RV defibrillator and LV leads, PM generator removal and capping of old RV PM lead, [employer]-D generator implant ICD pocket revision Defibrillator testing (NIPS) Successful procedures, no complications. PLAN Routine post ICD implant activity limitations and nursing care Remove pressure dressing in AM CXR, ECG Ancef 1g iv q8h 2x DIAGNOSES NICM LVEF 35% PAD Intermittent 3AVB s/p DDD PM, 100% Vpaced due to long 1AVB CHF NYHA III PROCEDURE REPORT A timeout was performed before the procedure. The patient was continuously monitored by electrocardiography, pulse oximetry and NIBP. Anesthesia MAC was provided by the anesthesia team. Venogram A left axillary venogram was performed. The left axillary, subclavian veins and the SVC were patent. Biventricular ICD upgrade The left pectoral area was meticulously prepared with ChloroPrep surgical scrub. Sterile draping was applied and Ioban was used to cover the operation site. The image intensifier was draped with a sterile bag and positioned over the patient's chest. After infiltration with 1% lidocaine, an incision was made in the left infraclavicular area, parallel to the deltopectoral groove, above the existing PM generator. The incision was carried down to the capsule, with careful cauterization of all bleeders. The PM was removed from the pocket. The pocket was revised and extended inferomedially using sharp and blunt dissection, hemostasis was achieved. Left axillary access was obtained using a micropuncture kit under fluoroscopic guidance. A long hydrophilic wire was advanced into the IVC and secured to the drape. A second access was obtained in a similar manner and another guidewire was retained. A 10.5Fr peel-away introducer was inserted over a guidewire. The right ventricular defibrillator lead was passed through the introducer and advanced to the right ventricular outflow tract under fluoroscopic guidance. The introducer sheath was then removed. The ventricular lead was positioned in the right ventricular cavity using a curved stiffening stylet. The curved stylet was replaced with a straight stylet which was advanced to the electrode tip and used to deploy the active fixation mechanism. The lead was tested repeatedly for stability. The lead was anchored in the subcutaneous tissue with nonabsorbable suture on the anchoring sleeve near the point of entry to the vein. A 9Fr peelaway introducer was used to insert the CS guide over the long hydrophilic wire. The introducer was then split and withdrawn. Cannulation of the CS ostium was successful, non-selective CS venogram with 5 cc contrast showed a normal CS body. A balloon angiographic catheter was then advanced. Selective CS venogram showed 2 very small lateral vein, a medium posterolateral vein and a medium posteior vein. After the angiographic catheter was removed, the quadripolar CS lead was advanced. A BMW wire was used to engage the posterolateral vein. The lead was then advanced to a wedge position, which was mid lateral. Good pacing threshold and sensing was obtained, with no phrenic nerve capture. The guide was then withdrawn and split. The lead was anchored in the subcutaneous tissue with nonabsorbable suture on the anchoring sleeve near the point of entry to the vein. All lead parameters were then remeasured and stable. There was adequate slack on fluoroscopy in ROLON and [place] positions. The heart borders remained unchanged on fluoroscopy. The old PM generator was disconnected and removed. The old RV PM lead was capped and sutured to the bottom of the pocket. The atrial lead was measured with the external coordinate measuring machine programmer. The [employer]-D generator was then attached to the leads and sealed in the prescribed manner. Excellent hemostasis was noted. The wound was then flushed with Ancef and closed using a double layer of 2-0 absorbable Vicryl sutures followed by a subcuticular running suture with 4-0 Monocryl, then Exofin. A sterile dressing, then a pressure dressing was applied. The device was programmed as detailed below and the patient left the laboratory in good condition. Implants Device: Medtronic Viva [id number] [employer]-D, SN: [id number], location: left infraclavicular New right ventricular lead: Medtronic [id number], SN: [id number], location: RV septum New left ventricular lead: Medtronic 4296-88, SN: [id number], location: mid lateral Existing RA lead: Medtronic 5076-52, SN: [id number], location: RAA The existing RV PM lead was capped, Medtronic 5076-58, SN: [id number] The old DDD PM was removed Medtronic Idalmis GASTELUM, SN: [id number] The system is not MRI compatible. Measurements RA bipolar: threshold 0.4V @ 0.5 ms, P 2.3 mV, impedance 419 Ohm RV bipolar: threshold 0.5V @ 0.5 ms, R 8.8 mV, impedance 601 Ohm LV bipolar: threshold 1.4V @ 0.5 ms, R 24.5 mV, impedance 1147 Ohm Shock impedance: 58 Ohm. Settings DDD 50/130 biv. VF @ 300 ms. Anesthesia: MAC Surgeon / Physician: Balaji Clifton Circular Ripsaw Operator: other (Dyana) Estimated blood loss: minimal Specimens: none sent Condition: stable Disposition: floor - Medications / Follow-up Referrals: Wen Virgen MD [Physician] - 01/21/17 7:15 pm (This is the appt for your sleep study. Go to admissions. Bring home medications and comfortable clothes to sleep in. ) New Prescriptions: Aspirin EC Tab 81 mg PO DAILY #100 tablet Carvedilol 12.5 mg PO BID #60 tablet Ticagrelor [Brilinta] 90 mg PO BID 30 Days
--- NOTE | 2017-01-11 11:05 | XRay Report ---
XR chest 1V portable Indication: Lead placement Comparison: 09 January 2017 Findings: The heart and mediastinum are stable in size and configuration. Pacemaker is been revised, appears within normal limits for positioning. The pulmonary vascularity is increased with bilateral increased interstitial lung density similar to previous. No other lung infiltrates, effusions, pneumothorax or other abnormality is demonstrated. Impression: Pacemaker revision appears within normal limits. No other significant changes. PROCEDURE INTERPRETED AT [facility] DEPARTMENT OF RADIOLOGY Final Report Signed by: Dr. Hammad Juan
[2017-01-11] MEDS: FUROSEMIDE 40 MG/4 ML VIAL IV SCH (12:26)
[2017-01-11] MEDS: ASPIRIN EC 81 MG TABLET PO SCH (12:27)
[2017-01-11] MEDS: SPIRONOLACTONE 25 MG TABLET PO SCH (12:27)
[2017-01-11] MEDS: GABAPENTIN 300 MG CAPSULE PO SCH ×2 (12:27→20:22)
[2017-01-11] MEDS: buPROPion SR 150 MG TABLET PO SCH ×2 (12:28→20:23)
[2017-01-11] MEDS: FAMOTIDINE 20 MG TABLET PO SCH ×2 (12:28→20:23)
[2017-01-11] MEDS: ATORVASTATIN 40 MG TABLET PO SCH (12:28)
[2017-01-11] MEDS: TICAGRELOR 90 MG TABLET PO SCH ×2 (12:34→20:23)
[2017-01-11] MEDS: CARVEDILOL 12.5 MG TABLET PO SCH ×2 (12:34→20:22)
--- NOTE | 2017-01-11 13:00 | EKG Report ---
Stationary ECG Study [facility] Test Date: 01/11/2017 12:59:43 PM Pat Name: CASH JOHNS Department: Room: 282 Gender: M Supervisor Assembly Department: [place] : 1950 Requested by: Chanda Clifton Order Number: [id number] Reading MD: CHANDA CLIFTON Intervals [place] Rate: 81 P: 56 [place]: 164 QRS: 201 QRSD: 168 T: 34 QT: 477 QTc: 515 Interpretive Statements Sinus rhythm with biventricular pacing Electronically Signed On 01-11-17 23:25:04 PRINTING ASSISTANT by CHANDA CLIFTON [email or web address]
[2017-01-11] MEDS: ENOXAPARIN 40 MG/0.4 ML SYRINGE SUBCUT SCH (13:37)
[2017-01-11] MEDS ORDERED: fentaNYL 100 MCG/2 ML VIAL ONE (14:08)
[2017-01-11] MEDS ORDERED: MIDAZOLAM 2 MG/2 ML VIAL ONE (14:08)
--- NOTE | 2017-01-11 15:50 | XRay Report ---
Exam: XR chest 2V Date: 01/11/2017 3:18 PM Indication: CHF Comparison: 01/11/2017 at 10:37 AM Technical: AP standing Findings: Cardiomegaly present with a cardiac pacing device with defibrillator leads and atrial ventricular leads foretold leads are present. Low volume right effusion with mild shunt vascularity and fluid along the minor fissure. Impression: 1. Cardiomegaly with stable appearance of the cardiac plantable defibrillator pacer device and a left-sided approach 2. Mild CHF and shunt vascularity with low-lying effusions right greater than left. PROCEDURE INTERPRETED AT [facility] DEPARTMENT OF RADIOLOGY Final Report Signed by: Dr. James Casanova
[2017-01-11] MEDS: FUROSEMIDE 80 MG TABLET PO SCH (16:53)
[2017-01-11] MEDS: INSULIN GLARGINE 100 UNIT/ML SUBCUT SCH (16:53)
[2017-01-12 03:40] LABS: Basophils % 0.5 % (0.0-0.8); Eosinophils # 0.2 10*3/uL (0.0-0.87); Eosinophils % 3.2 % (0.00-10.9); Hematocrit 32.4 VOL% (42.0-52.0); Hemoglobin 9.5 GM/DL (14.0-18.0); Immature Granulocytes % 0.4 %; Immature Granulocytes Absolute 0.03 #; Lymphocytes # 1.3 10*3/uL (1.4-4.0); Lymphocytes % 17.7 % (21.2-54.2); Mean Corpuscular HGB Conc 29.3 GM/DL (32-36); Mean Corpuscular Hemoglobin 24 PG (27-34); Mean Corpuscular Volume 81.2 FL (87-102); Mean Platelet Volume 11.4 FL (9.6-12.0); Monocytes # 0.7 10*3/uL (0.11-0.8); Monocytes % 8.8 % (1.7-12.7); Neutrophils # 5.2 10*3/uL (1.4-7.4); Neutrophils % 69.4 % (38.7-73.9); Platelet Count 233 T/CUMM (130-400); Red Blood Count 3.99 MC/CUMM (3.8-5.5); Red Cell Distribution Width 16.9 % (9.3-17.3); White Blood Count 7.4 T/CUMM (4-12)
[2017-01-12 04:15] LABS: Calcium 8.8 MG/DL (8.5-10.1); Magnesium 2.1 MG/DL (1.8-2.4); Potassium 4.3 MMOL/L (3.5-5.1)
--- NOTE | 2017-01-12 07:47 | XRay Report ---
XR chest 2V Indication: Lead placement Comparison: 11 January 2017 Findings: The heart and mediastinum are stable in size and configuration. Pacemaker device is unchanged in position. The pulmonary vascularity is improved with bilateral decreased interstitial lung density. No other lung infiltrates, effusions, pneumothorax or other abnormality is demonstrated. Impression: Findings suggest improving cardiac decompensation. PROCEDURE INTERPRETED AT [facility] DEPARTMENT OF RADIOLOGY Final Report Signed by: Dr. Hammad Juan
[2017-01-12] MEDS: FUROSEMIDE 80 MG TABLET PO SCH (09:42)
[2017-01-12] MEDS: SPIRONOLACTONE 25 MG TABLET PO SCH (09:43)
[2017-01-12] MEDS: CARVEDILOL 12.5 MG TABLET PO SCH (09:43)
[2017-01-12] MEDS: GABAPENTIN 300 MG CAPSULE PO SCH (09:43)
[2017-01-12] MEDS: ATORVASTATIN 40 MG TABLET PO SCH (09:43)
[2017-01-12] MEDS: ASPIRIN EC 81 MG TABLET PO SCH (09:43)
[2017-01-12] MEDS: TICAGRELOR 90 MG TABLET PO SCH (09:43)
[2017-01-12] MEDS: buPROPion SR 150 MG TABLET PO SCH (09:44)
[2017-01-12] MEDS: FAMOTIDINE 20 MG TABLET PO SCH (09:44)
[2017-01-12] MEDS ORDERED: INFLUENZA VIRUS VACCINE 0.5 ML SYRINGE IM ONE (10:30)
[2017-01-12 11:45] VITALS: BP 151/77
--- NOTE | 2017-01-12 12:18 | Pathology Report from [facility] ---
ACCESSION # : [id number] PATIENT NAME : Santos Love ORDERING DR : STANLEY ANTOINE MD CLINICAL HX: Severe NICM POST-OP DX: Same SPECIMEN INFO: Pacemaker generator GROSS DESCRIPTION: The specimen is received fresh labeled with the patient's name Santos Love is a pacemaker generator serial #[id number]. Submitted for gross exam only. DIAGNOSIS FOR SANTOS LOVE: Pacemaker generator, GROSS ONLY. SERVICE DATE: 01/11/2017 REPORT DATE: 01/12/2017 PATHOLOGIST: Caitie Landrum M.D. [facility]
== END 2017-01-12 12:15 | disposition home or self-care (01) | DRG 226 ==
LOC: N.CL 10:11 → N.TELEN 10:11 → N.CL 10:20 → N.TELEN 16:29
PROVIDERS: ADMIT Internal Medicine Clinical Cardiac Electrophysiology; ATTEND Internal Medicine Cardiovascular Disease

== ENCOUNTER 2017-10-27 18:44 | Inpatient (IN) ==
[2017-10-27] MEDS ORDERED: SODIUM CHLORIDE 0.9% 1,000 ML IV STA (19:09)
[2017-10-27 19:17] LABS: Basophils % 0.2 % (0.0-0.8); Eosinophils # 0.1 10*3/uL (0.0-0.87); Eosinophils % 0.4 % (0.00-10.9); Hematocrit 37.3 VOL% (42.0-52.0); Hemoglobin 12.3 GM/DL (14.0-18.0); Immature Granulocytes % 0.7 %; Immature Granulocytes Absolute 0.08 #; Lymphocytes # 1.4 10*3/uL (1.4-4.0); Lymphocytes % 11.2 % (21.2-54.2); Mean Corpuscular Hemoglobin 26 PG (27-34); Mean Corpuscular Volume 79.2 FL (87-102); Monocytes # 1.2 10*3/uL (0.11-0.8); Monocytes % 10.1 % (1.7-12.7); Neutrophils # 9.5 10*3/uL (1.4-7.4); Neutrophils % 77.4 % (38.7-73.9); Platelet Count 323 T/CUMM (130-400); Red Blood Count 4.71 MC/CUMM (3.8-5.5); White Blood Count 12.3 T/CUMM (4-12)
[2017-10-27 19:29] LABS: INR 1.1; PT Patient Result 11.2 SECS; Partial Thromboplastin Time 30.5 SECS (0-40)
[2017-10-27 19:43] LABS: Alanine Aminotransferase < 9 U/L (16-61); Alkaline Phosphatase 364 U/L (45-117); Aspartate Amino Transferase 13 U/L (0-37); Blood Urea Nitrogen 72 MG/DL (7-18); Calcium 9.4 MG/DL (8.5-10.1); Glucose 334 MG/DL (74-106); Osmolality,Calculated 290.1 MOS/KG (273-304); Potassium 5.3 MMOL/L (3.5-5.1); Sodium 128 MMOL/L (136-145); Total Protein 7.6 G/DL (6.4-8.3); Troponin I Only < 0.015 NG/ML (0.00-0.045)
[2017-10-27 19:44] LABS: Lactic Acid 2.4 MMOL/L (0.4-2.0)
[2017-10-27] MEDS ORDERED: CLINDAMYCIN INJ 600 MG in PREMIX 1 EACH IV STA (20:21)
[2017-10-27] MEDS ORDERED: CLINDAMYCIN INJ 50 ML IV ONE (21:28)
[2017-10-27] MEDS ORDERED: ACETAMINOPHEN 325 MG TABLET PO PRN (23:28)
[2017-10-27] MEDS ORDERED: GLUCAGON 1 MG VIAL IM PRN (23:28)
[2017-10-27] MEDS ORDERED: DEXTROSE 50% 25 GM/50 ML VIAL IV PRN (23:28)
[2017-10-27] MEDS: DEXTROSE 5% NACL 0.9% 1,000 ML IV SCH (23:35)
[2017-10-28] MEDS: ENOXAPARIN 30 MG/0.3 ML SYRINGE SUBCUT SCH (00:54)
[2017-10-28] MEDS: ONDANSETRON 4 MG/2 ML VIAL IV PRN (01:22)
[2017-10-28] MEDS: PIPERACILLIN/TAZOBACTAM 3.375 MG in SODIUM CHLORIDE 0.9% 100 ML IV SCH ×3 (01:30→16:40)
[2017-10-28 02:52] LABS: Basophils % 0.3 % (0.0-0.8); Eosinophils # 0.1 10*3/uL (0.0-0.87); Eosinophils % 0.5 % (0.00-10.9); Hematocrit 33.6 VOL% (42.0-52.0); Hemoglobin 11.1 GM/DL (14.0-18.0); Immature Granulocytes % 0.8 %; Lymphocytes # 1.4 10*3/uL (1.4-4.0); Lymphocytes % 10.7 % (21.2-54.2); Mean Corpuscular Hemoglobin 26 PG (27-34); Mean Corpuscular Volume 78.3 FL (87-102); Mean Platelet Volume 11.6 FL (9.6-12.0); Monocytes # 1.5 10*3/uL (0.11-0.8); Neutrophils # 9.6 10*3/uL (1.4-7.4); Neutrophils % 75.7 % (38.7-73.9); Platelet Count 306 T/CUMM (130-400); Red Blood Count 4.29 MC/CUMM (3.8-5.5); White Blood Count 12.6 T/CUMM (4-12)
[2017-10-28 03:05] LABS: Calcium 8.9 MG/DL (8.5-10.1); Osmolality,Calculated 290.9 MOS/KG (273-304); Potassium 4.9 MMOL/L (3.5-5.1)
[2017-10-28] MEDS ORDERED: VANCOMYCIN INJ 2,000 MG in SODIUM CHLORIDE 0.9% 500 ML IV SCH (05:00)
[2017-10-28 07:10] LABS: Apearance,Urine CLOUDY (Clear); Bacteria,Urine Occasional /HPF (Few); Bilirubin,Urine Negative (Negative); Blood, Urine Negative (Negative); Glucose,Urine (UA) >=500 mg/dL (Negative); Granular Casts,Urine 7 /LPF (0-1); Hyaline Casts,Urine 5 /LPF (0-3); Ketones,Urine Negative (Negative); Nitrite,Urine Negative (Negative); Protein,Urine Negative; RBC,Urine 1 /HPF (0-4); Urine Color Amber (Yellow); Urine Specific Gravity 1.011 (1.001-1.035); Urine Urobilinogen < 2.0 EU/DL (0.2-1.0); WBC,Urine 2 /HPF (0-6)
[2017-10-28] MEDS: ROSUVASTATIN 20 MG TABLET PO SCH (08:57)
[2017-10-28] MEDS: PANTOPRAZOLE 40 MG TABLET PO SCH (08:57)
[2017-10-28] MEDS: CLOPIDOGREL 75 MG TABLET PO SCH (08:57)
[2017-10-28] MEDS: INSULIN GLARGINE 100 UNIT/ML SUBCUT SCH (08:58)
[2017-10-28] MEDS ORDERED: BENAZEPRIL 10 MG TABLET PO SCH (09:00)
[2017-10-28] MEDS ORDERED: CARVEDILOL 3.125 MG TABLET PO SCH (09:00)
[2017-10-28] MEDS ORDERED: VALSARTAN/HCTZ 160-12.5 MG TABLET PO SCH (09:00)
[2017-10-28] MEDS ORDERED: amLODIPine 5 MG TABLET PO SCH (09:00)
[2017-10-28] MEDS: FUROSEMIDE 80 MG TABLET PO SCH ×2 (09:06→21:03)
[2017-10-28] MEDS ORDERED: CHLORHEXIDINE 4% SOLN 118 ML BOTTLE TOP ONE (11:13)
[2017-10-28] MEDS ORDERED: SKIN HEALING OINT (AQUAPHOR) 50 GM TUBE TOP PRN (11:13)
[2017-10-28] MEDS: DEXTROSE 5% NACL 0.9% 1,000 ML IV SCH (12:35)
[2017-10-28] MEDS ORDERED: INSULIN GLARGINE HUM REC ANLOG 20 UNIT SUBCUT SCH (16:30)
[2017-10-28] MEDS: CARVEDILOL 6.25 MG TABLET PO SCH (21:03)
[2017-10-28] MEDS: SODIUM CHLORIDE 0.9% 1,000 ML IV SCH (21:21)
[2017-10-29] MEDS: PIPERACILLIN/TAZOBACTAM 3.375 MG in SODIUM CHLORIDE 0.9% 100 ML IV SCH ×3 (00:18→15:42)
[2017-10-29] MEDS: ENOXAPARIN 30 MG/0.3 ML SYRINGE SUBCUT SCH ×2 (07:05→23:29)
[2017-10-29] MEDS: INSULIN GLARGINE 100 UNIT/ML SUBCUT SCH (09:27)
[2017-10-29] MEDS: CLOPIDOGREL 75 MG TABLET PO SCH (09:28)
[2017-10-29] MEDS: PANTOPRAZOLE 40 MG TABLET PO SCH (09:28)
[2017-10-29] MEDS: ROSUVASTATIN 20 MG TABLET PO SCH (09:28)
[2017-10-29] MEDS: CARVEDILOL 6.25 MG TABLET PO SCH ×2 (09:28→17:19)
[2017-10-29] MEDS: SODIUM CHLORIDE 0.9% 1,000 ML IV SCH (09:30)
[2017-10-29] MEDS: oxyCODONE IR 5 MG TABLET PO PRN (13:05)
[2017-10-30] MEDS: SODIUM CHLORIDE 0.9% 1,000 ML IV SCH ×2 (02:47→13:52)
[2017-10-30] MEDS ORDERED: VANCOMYCIN INJ 1,000 MG in SODIUM CHLORIDE 0.9% 500 ML IV SCH (05:00)
[2017-10-30] MEDS: oxyCODONE IR 5 MG TABLET PO PRN ×2 (05:16→20:21)
[2017-10-30 07:16] LABS: Basophils # 0.1 10*3/uL (0.0-0.2); Basophils % 0.4 % (0.0-0.8); Eosinophils # 0.1 10*3/uL (0.0-0.87); Eosinophils % 0.7 % (0.00-10.9); Hematocrit 31.3 VOL% (42.0-52.0); Hemoglobin 10.1 GM/DL (14.0-18.0); Immature Granulocytes % 0.8 %; Lymphocytes % 14.6 % (21.2-54.2); Mean Corpuscular HGB Conc 32.3 GM/DL (32-36); Mean Corpuscular Hemoglobin 26 PG (27-34); Mean Corpuscular Volume 80.3 FL (87-102); Mean Platelet Volume 11.1 FL (9.6-12.0); Monocytes # 1.5 10*3/uL (0.11-0.8); Monocytes % 11.1 % (1.7-12.7); Neutrophils # 9.7 10*3/uL (1.4-7.4); Neutrophils % 72.4 % (38.7-73.9); Platelet Count 299 T/CUMM (130-400); Red Cell Distribution Width 15.4 % (9.3-17.3); White Blood Count 13.3 T/CUMM (4-12)
[2017-10-30 07:43] LABS: Calcium 8.5 MG/DL (8.5-10.1); Osmolality,Calculated 283.8 MOS/KG (273-304); Potassium 4.3 MMOL/L (3.5-5.1)
[2017-10-30] MEDS: INSULIN GLARGINE 100 UNIT/ML SUBCUT SCH (07:53)
[2017-10-30] MEDS ORDERED: VANCOMYCIN INJ 1,000 MG in SODIUM CHLORIDE 0.45% 250 ML IV SCH (09:00)
[2017-10-30] MEDS: PENTOXIFYLLINE 400 MG TABLET PO SCH ×3 (09:06→20:20)
[2017-10-30] MEDS: ACETYLCYSTEINE 600 MG CAPSULE PO SCH ×2 (09:06→20:20)
[2017-10-30] MEDS: ROSUVASTATIN 20 MG TABLET PO SCH (09:06)
[2017-10-30] MEDS: PANTOPRAZOLE 40 MG TABLET PO SCH (09:06)
[2017-10-30] MEDS: CARVEDILOL 6.25 MG TABLET PO SCH ×2 (09:06→16:35)
[2017-10-30] MEDS ORDERED: LACTULOSE 20 GM/30 ML UDCUP PO PRN (10:53)
[2017-10-30] MEDS: DOCUSATE SODIUM 100 MG CAPSULE PO PRN (16:32)
[2017-10-30] MEDS: MAGNESIUM HYDROXIDE SUSP 30 ML UDCUP PO PRN (16:32)
[2017-10-30] MEDS ORDERED: CEFTAROLINE 600 MG in SODIUM CHLORIDE 0.9% 50 ML IV SCH (18:00)
[2017-10-30] MEDS: CEFTAROLINE 600 MG in SODIUM CHLORIDE 0.9% 50 ML IV SCH (20:19)
[2017-10-31] MEDS: ENOXAPARIN 30 MG/0.3 ML SYRINGE SUBCUT SCH ×3 (00:01→23:03)
[2017-10-31] MEDS: SODIUM CHLORIDE 0.9% 1,000 ML IV SCH ×2 (03:41→16:22)
[2017-10-31 06:30] LABS: Basophils # 0.1 10*3/uL (0.0-0.2); Basophils % 0.4 % (0.0-0.8); Eosinophils # 0.1 10*3/uL (0.0-0.87); Eosinophils % 0.9 % (0.00-10.9); Hematocrit 30.6 VOL% (42.0-52.0); Hemoglobin 9.8 GM/DL (14.0-18.0); Immature Granulocytes % 0.5 %; Immature Granulocytes Absolute 0.07 #; Lymphocytes # 1.5 10*3/uL (1.4-4.0); Lymphocytes % 11.3 % (21.2-54.2); Mean Corpuscular Hemoglobin 26 PG (27-34); Mean Corpuscular Volume 80.5 FL (87-102); Mean Platelet Volume 11.2 FL (9.6-12.0); Monocytes # 1.4 10*3/uL (0.11-0.8); Monocytes % 10.9 % (1.7-12.7); Neutrophils # 9.7 10*3/uL (1.4-7.4); Platelet Count 287 T/CUMM (130-400); Red Cell Distribution Width 15.5 % (9.3-17.3); White Blood Count 12.8 T/CUMM (4-12)
[2017-10-31 06:53] LABS: Calcium 8.5 MG/DL (8.5-10.1); Magnesium 2.3 MG/DL (1.8-2.4); Osmolality,Calculated 290.5 MOS/KG (273-304); Potassium 4.3 MMOL/L (3.5-5.1)
[2017-10-31] MEDS: INSULIN GLARGINE 100 UNIT/ML SUBCUT SCH (07:53)
[2017-10-31] MEDS ORDERED: SILVER SULFADIAZINE 1% CREAM 400 GM JAR TOP SCH (09:00)
[2017-10-31] MEDS ORDERED: CHLORHEXIDINE 4% SOLN 118 ML BOTTLE TOP ONE (09:03)
[2017-10-31] MEDS: ROSUVASTATIN 20 MG TABLET PO SCH (09:06)
[2017-10-31] MEDS: CEFTAROLINE 600 MG in SODIUM CHLORIDE 0.9% 50 ML IV SCH ×2 (09:06→20:32)
[2017-10-31] MEDS: PANTOPRAZOLE 40 MG TABLET PO SCH (09:06)
[2017-10-31] MEDS: ACETYLCYSTEINE 600 MG CAPSULE PO SCH ×2 (09:06→20:34)
[2017-10-31] MEDS: DOCUSATE SODIUM 100 MG CAPSULE PO PRN (09:06)
[2017-10-31] MEDS: PENTOXIFYLLINE 400 MG TABLET PO SCH ×3 (09:06→20:31)
[2017-10-31] MEDS: CARVEDILOL 6.25 MG TABLET PO SCH ×2 (09:06→16:22)
[2017-10-31] MEDS: oxyCODONE IR 5 MG TABLET PO PRN (17:10)
[2017-10-31] MEDS: diphenhydrAMINE 50 MG/1 ML VIAL IV SCH ×2 (18:23→23:11)
[2017-11-01] MEDS: SODIUM CHLORIDE 0.9% 1,000 ML IV SCH ×2 (04:23→18:46)
[2017-11-01] MEDS: diphenhydrAMINE 50 MG/1 ML VIAL IV SCH ×4 (05:52→23:08)
[2017-11-01 06:37] LABS: Basophils % 0.3 % (0.0-0.8); Eosinophils % 0.1 % (0.00-10.9); Hematocrit 32.7 VOL% (42.0-52.0); Hemoglobin 10.4 GM/DL (14.0-18.0); Immature Granulocytes % 0.6 %; Immature Granulocytes Absolute 0.08 #; Lymphocytes # 1.2 10*3/uL (1.4-4.0); Lymphocytes % 8.4 % (21.2-54.2); Mean Corpuscular HGB Conc 31.8 GM/DL (32-36); Mean Corpuscular Hemoglobin 26 PG (27-34); Mean Corpuscular Volume 80.7 FL (87-102); Mean Platelet Volume 10.8 FL (9.6-12.0); Monocytes # 1.2 10*3/uL (0.11-0.8); Monocytes % 8.7 % (1.7-12.7); Neutrophils # 11.3 10*3/uL (1.4-7.4); Neutrophils % 81.9 % (38.7-73.9); Platelet Count 316 T/CUMM (130-400); Red Blood Count 4.05 MC/CUMM (3.8-5.5); Red Cell Distribution Width 15.4 % (9.3-17.3); White Blood Count 13.8 T/CUMM (4-12)
[2017-11-01 06:45] LABS: INR 1.1; PT Patient Result 11.4 SECS; Partial Thromboplastin Time 31.7 SECS (0-40)
[2017-11-01 07:05] LABS: Calcium 9.1 MG/DL (8.5-10.1); Magnesium 2.3 MG/DL (1.8-2.4); Osmolality,Calculated 288.7 MOS/KG (273-304); Potassium 4.9 MMOL/L (3.5-5.1)
[2017-11-01] MEDS: INSULIN GLARGINE 100 UNIT/ML SUBCUT SCH (07:53)
[2017-11-01] MEDS: ACETYLCYSTEINE 600 MG CAPSULE PO SCH ×2 (08:30→20:15)
[2017-11-01] MEDS: PENTOXIFYLLINE 400 MG TABLET PO SCH ×3 (08:30→20:15)
[2017-11-01] MEDS: CARVEDILOL 6.25 MG TABLET PO SCH ×2 (08:30→17:02)
[2017-11-01] MEDS: ROSUVASTATIN 20 MG TABLET PO SCH (08:30)
[2017-11-01] MEDS: PANTOPRAZOLE 40 MG TABLET PO SCH (08:30)
[2017-11-01] MEDS: CEFTAROLINE 600 MG in SODIUM CHLORIDE 0.9% 50 ML IV SCH (08:31)
[2017-11-01] MEDS ORDERED: ACETYLCYSTEINE 600 MG CAPSULE PO SCH (10:00)
[2017-11-01] MEDS: SILVER SULFADIAZINE 1% CREAM 400 GM JAR TOP SCH (10:26)
[2017-11-01] MEDS: oxyCODONE IR 5 MG TABLET PO PRN ×2 (17:58→23:08)
[2017-11-01] MEDS: CEFTAROLINE 600 MG in SODIUM CHLORIDE 0.9% 100 ML IV SCH (20:14)
[2017-11-01] MEDS: ENOXAPARIN 30 MG/0.3 ML SYRINGE SUBCUT SCH (22:28)
[2017-11-02 06:08] LABS: Basophils % 0.1 % (0.0-0.8); Eosinophils # 0.1 10*3/uL (0.0-0.87); Eosinophils % 0.4 % (0.00-10.9); Hematocrit 31.7 VOL% (42.0-52.0); Hemoglobin 10.1 GM/DL (14.0-18.0); Immature Granulocytes % 0.6 %; Immature Granulocytes Absolute 0.09 #; Mean Corpuscular HGB Conc 31.9 GM/DL (32-36); Mean Corpuscular Hemoglobin 26 PG (27-34); Mean Corpuscular Volume 80.7 FL (87-102); Monocytes # 1.3 10*3/uL (0.11-0.8); Monocytes % 8.9 % (1.7-12.7); Neutrophils # 12.4 10*3/uL (1.4-7.4); Platelet Count 290 T/CUMM (130-400); Red Blood Count 3.93 MC/CUMM (3.8-5.5); Red Cell Distribution Width 15.4 % (9.3-17.3); White Blood Count 14.9 T/CUMM (4-12)
[2017-11-02] MEDS: diphenhydrAMINE 50 MG/1 ML VIAL IV SCH ×4 (06:22→23:40)
[2017-11-02 06:43] LABS: Calcium 8.9 MG/DL (8.5-10.1); Magnesium 2.3 MG/DL (1.8-2.4); Osmolality,Calculated 295.7 MOS/KG (273-304); Potassium 5.1 MMOL/L (3.5-5.1)
[2017-11-02 06:44] LABS: Rheumatoid Factor < 15 IU/ML (<15)
[2017-11-02 07:21] LABS: HIV Antigen/Antibody Result Nonreactive (Nonreactive); Hepatitis B Core Ab Result Negative (Negative); Hepatitis B Surface Ag Quant 0.56 Index; Hepatitis B Surface Ag Result Negative (Negative); Hepatitis C Virus Ab Quant 0.03 Index; Hepatitis C Virus Ab Result Negative (Negative)
[2017-11-02] MEDS: ONDANSETRON 4 MG/2 ML VIAL IV PRN (10:32)
[2017-11-02] MEDS: ROSUVASTATIN 20 MG TABLET PO SCH (10:51)
[2017-11-02] MEDS: CARVEDILOL 6.25 MG TABLET PO SCH ×2 (10:51→17:16)
[2017-11-02] MEDS: INSULIN GLARGINE 100 UNIT/ML SUBCUT SCH (10:51)
[2017-11-02] MEDS: PANTOPRAZOLE 40 MG TABLET PO SCH (10:51)
[2017-11-02] MEDS: ACETYLCYSTEINE 600 MG CAPSULE PO SCH (10:51)
[2017-11-02] MEDS: PENTOXIFYLLINE 400 MG TABLET PO SCH ×3 (10:52→20:56)
[2017-11-02] MEDS: CEFTAROLINE 600 MG in SODIUM CHLORIDE 0.9% 100 ML IV SCH (11:30)
[2017-11-02] MEDS: SILVER SULFADIAZINE 1% CREAM 400 GM JAR TOP SCH (12:18)
[2017-11-02] MEDS: cefTRIAXone 1,000 MG in SYRINGE 1 EACH IV SCH (13:40)
[2017-11-02] MEDS: ENOXAPARIN 40 MG/0.4 ML SYRINGE SUBCUT SCH (20:56)
[2017-11-03] MEDS: diphenhydrAMINE 50 MG/1 ML VIAL IV SCH ×3 (06:12→18:18)
[2017-11-03] MEDS: CARVEDILOL 6.25 MG TABLET PO SCH ×2 (09:46→18:18)
[2017-11-03] MEDS: INSULIN GLARGINE 100 UNIT/ML SUBCUT SCH ×2 (09:46→10:49)
[2017-11-03] MEDS: PENTOXIFYLLINE 400 MG TABLET PO SCH ×3 (09:46→21:05)
[2017-11-03] MEDS: ROSUVASTATIN 20 MG TABLET PO SCH (09:46)
[2017-11-03] MEDS: PANTOPRAZOLE 40 MG TABLET PO SCH (09:46)
[2017-11-03] MEDS: SILVER SULFADIAZINE 1% CREAM 400 GM JAR TOP SCH (09:47)
[2017-11-03] MEDS: INSULIN REGULAR 100 UNIT/ML SUBCUT SCH ×3 (12:28→21:04)
[2017-11-03] MEDS: cefTRIAXone 1,000 MG in SYRINGE 1 EACH IV SCH (12:29)
[2017-11-03 13:56] LABS: Basophils % 0.2 % (0.0-0.8); Eosinophils # 0.1 10*3/uL (0.0-0.87); Eosinophils % 0.7 % (0.00-10.9); Hematocrit 26.2 VOL% (42.0-52.0); Hemoglobin 8.3 GM/DL (14.0-18.0); Immature Granulocytes % 0.8 %; Immature Granulocytes Absolute 0.13 #; Lymphocytes # 1.5 10*3/uL (1.4-4.0); Lymphocytes % 9.3 % (21.2-54.2); Mean Corpuscular HGB Conc 31.7 GM/DL (32-36); Mean Corpuscular Hemoglobin 26 PG (27-34); Mean Corpuscular Volume 82.9 FL (87-102); Mean Platelet Volume 10.9 FL (9.6-12.0); Monocytes # 1.3 10*3/uL (0.11-0.8); Monocytes % 8.2 % (1.7-12.7); Neutrophils # 12.7 10*3/uL (1.4-7.4); Neutrophils % 80.8 % (38.7-73.9); Platelet Count 276 T/CUMM (130-400); Red Blood Count 3.16 MC/CUMM (3.8-5.5); Red Cell Distribution Width 15.4 % (9.3-17.3); White Blood Count 15.7 T/CUMM (4-12)
[2017-11-03 15:06] LABS: Myeloperoxidase Antibody < 0.2 U
[2017-11-03] MEDS: methylPREDNISolone SOD SUC 40 MG/1 ML VIAL IV SCH ×2 (15:15→21:04)
[2017-11-03] MEDS: INSULIN LISPRO 100 UNIT/ML SUBCUT SCH (18:18)
[2017-11-03] MEDS: ENOXAPARIN 40 MG/0.4 ML SYRINGE SUBCUT SCH (21:05)
[2017-11-04] MEDS: diphenhydrAMINE 50 MG/1 ML VIAL IV SCH ×4 (00:04→17:42)
[2017-11-04] MEDS: methylPREDNISolone SOD SUC 40 MG/1 ML VIAL IV SCH ×3 (06:27→21:35)
[2017-11-04 06:46] LABS: Basophils % 0.1 % (0.0-0.8); Hematocrit 25.3 VOL% (42.0-52.0); Hemoglobin 8.1 GM/DL (14.0-18.0); Immature Granulocytes % 1.1 %; Immature Granulocytes Absolute 0.19 #; Lymphocytes # 1.2 10*3/uL (1.4-4.0); Lymphocytes % 6.8 % (21.2-54.2); Mean Corpuscular Hemoglobin 26 PG (27-34); Mean Corpuscular Volume 80.6 FL (87-102); Mean Platelet Volume 10.7 FL (9.6-12.0); Monocytes # 0.5 10*3/uL (0.11-0.8); Neutrophils # 15.8 10*3/uL (1.4-7.4); Platelet Count 287 T/CUMM (130-400); Red Blood Count 3.14 MC/CUMM (3.8-5.5); Red Cell Distribution Width 15.4 % (9.3-17.3); White Blood Count 17.7 T/CUMM (4-12)
[2017-11-04 06:58] LABS: INR 1.1; PT Patient Result 11.2 SECS; Partial Thromboplastin Time 28.2 SECS (0-40)
[2017-11-04 07:16] LABS: Calcium 8.9 MG/DL (8.5-10.1); Magnesium 2.4 MG/DL (1.8-2.4); Osmolality,Calculated 298.7 MOS/KG (273-304); Potassium 5.4 MMOL/L (3.5-5.1)
[2017-11-04] MEDS: ROSUVASTATIN 20 MG TABLET PO SCH (08:45)
[2017-11-04] MEDS: INSULIN LISPRO 100 UNIT/ML SUBCUT SCH ×3 (08:45→16:32)
[2017-11-04] MEDS: INSULIN REGULAR 100 UNIT/ML SUBCUT SCH ×4 (08:45→20:43)
[2017-11-04] MEDS: PANTOPRAZOLE 40 MG TABLET PO SCH (08:45)
[2017-11-04] MEDS: INSULIN GLARGINE 100 UNIT/ML SUBCUT SCH (08:45)
[2017-11-04] MEDS: CARVEDILOL 6.25 MG TABLET PO SCH ×2 (08:45→16:32)
[2017-11-04] MEDS: PENTOXIFYLLINE 400 MG TABLET PO SCH ×3 (08:45→20:43)
[2017-11-04] MEDS ORDERED: SODIUM POLYSTYRENE SULFATE 15 GM/60 ML BOTTLE PO ONE ×2 (10:12→16:35)
[2017-11-04] MEDS ORDERED: SODIUM CHLORIDE 0.9% 1,000 ML IV PRN (10:47)
[2017-11-04] MEDS: cefTRIAXone 1,000 MG in SYRINGE 1 EACH IV SCH (13:32)
[2017-11-04] MEDS: SILVER SULFADIAZINE 1% CREAM 400 GM JAR TOP SCH (16:32)
[2017-11-04] MEDS: ENOXAPARIN 40 MG/0.4 ML SYRINGE SUBCUT SCH (20:43)
[2017-11-05] MEDS: diphenhydrAMINE 50 MG/1 ML VIAL IV SCH ×4 (00:40→18:03)
[2017-11-05] MEDS ORDERED: ceFAZolin 2,000 MG in SYRINGE 1 EACH IV ONE (06:00)
[2017-11-05] MEDS: methylPREDNISolone SOD SUC 40 MG/1 ML VIAL IV SCH ×3 (06:16→22:28)
[2017-11-05 06:21] LABS: Basophils % 0.1 % (0.0-0.8); Hematocrit 26.9 VOL% (42.0-52.0); Hemoglobin 8.8 GM/DL (14.0-18.0); Immature Granulocytes % 0.9 %; Immature Granulocytes Absolute 0.14 #; Lymphocytes # 1.1 10*3/uL (1.4-4.0); Mean Corpuscular HGB Conc 32.7 GM/DL (32-36); Mean Corpuscular Hemoglobin 27 PG (27-34); Mean Platelet Volume 10.9 FL (9.6-12.0); Monocytes % 6.6 % (1.7-12.7); Neutrophils # 13.1 10*3/uL (1.4-7.4); Neutrophils % 85.4 % (38.7-73.9); Platelet Count 276 T/CUMM (130-400); Red Blood Count 3.32 MC/CUMM (3.8-5.5); Red Cell Distribution Width 15.1 % (9.3-17.3); White Blood Count 15.4 T/CUMM (4-12)
[2017-11-05 06:51] LABS: Osmolality,Calculated 295.4 MOS/KG (273-304); Potassium 4.9 MMOL/L (3.5-5.1)
[2017-11-05] MEDS ORDERED: BUPIVACAINE 0.25% 50 ML VIAL ONE (07:40)
[2017-11-05 07:57] LABS: Anisocytosis 1+; Band Neutrophils 2 % (0-10); Eosinophils 1 % (0-10); Helmet Cells Slight; Hypochromasia 2+; Lymphocytes 8 % (20-55); Microcytosis Slight; Segmented Neutrophils 82 % (50-85); Total Cells Counted 100
[2017-11-05 07:58] LABS: Platelet Estimate Normal; Stomatocytes Slight
[2017-11-05] MEDS ORDERED: METOCLOPRAMIDE 10 MG/2 ML VIAL ONE (08:09)
[2017-11-05] MEDS ORDERED: FAMOTIDINE 20 MG/2 ML VIAL IV ONE (08:10)
[2017-11-05] MEDS: INSULIN REGULAR 100 UNIT/ML SUBCUT SCH ×4 (08:28→21:04)
[2017-11-05] MEDS: INSULIN GLARGINE 100 UNIT/ML SUBCUT SCH (08:28)
[2017-11-05] MEDS: CARVEDILOL 6.25 MG TABLET PO SCH ×2 (08:28→16:26)
[2017-11-05] MEDS: PANTOPRAZOLE 40 MG TABLET PO SCH (08:29)
[2017-11-05] MEDS: ROSUVASTATIN 20 MG TABLET PO SCH (08:29)
[2017-11-05] MEDS: INSULIN LISPRO 100 UNIT/ML SUBCUT SCH ×3 (08:29→16:26)
[2017-11-05] MEDS ORDERED: LACTATED RINGERS 1,000 ML IV SCH (08:30)
[2017-11-05] MEDS: SILVER SULFADIAZINE 1% CREAM 400 GM JAR TOP SCH (08:30)
[2017-11-05] MEDS: PENTOXIFYLLINE 400 MG TABLET PO SCH ×3 (08:30→21:03)
[2017-11-05] MEDS ORDERED: SILVER SULFADIAZINE 1% CREAM 400 GM JAR TOP ONE (08:43)
[2017-11-05 09:25] LABS: Albumin (SPE) 1.5 G/DL (3.2-5.3); Albumin (SPE) Rel % 26.8 %; Alpha 1 (SPE) 0.6 G/DL (0.1-0.4); Alpha 1 (SPE) Rel % 11.1 %; Alpha 2 (SPE) 1.2 G/DL (0.4-1.0); Alpha 2 (SPE) Rel % 20.8 %; Beta (SPE) 0.9 G/DL (0.5-1.1); Beta (SPE) Rel % 16.7 %; Gamma (SPE) 1.4 G/DL (0.7-1.7); Gamma (SPE) Rel % 24.6 %; Total Protein (Chem) 5.6 G/DL (6.4-8.3)
[2017-11-05] MEDS ORDERED: PROPOFOL 200 MG/20 ML VIAL IV ONE (09:57)
[2017-11-05] MEDS ORDERED: SEVOFLURANE 1 UNIT/15 MINUTE INH ONE (09:58)
[2017-11-05] MEDS ORDERED: HYDROmorphone 2 MG/1 ML VIAL ONE (09:58)
[2017-11-05] MEDS ORDERED: ONDANSETRON 4 MG/2 ML VIAL ONE (09:58)
[2017-11-05] MEDS ORDERED: CHLORHEXIDINE 4% SOLN 118 ML BOTTLE TOP ONE (10:01)
[2017-11-05] MEDS ORDERED: DEXTROSE 50% 25 GM/50 ML VIAL IV PRN (11:38)
[2017-11-05] MEDS ORDERED: GLUCAGON 1 MG VIAL IM PRN (11:38)
[2017-11-05] MEDS: SODIUM CHLORIDE 0.9% 1,000 ML IV SCH (11:49)
[2017-11-05] MEDS: cefTRIAXone 1,000 MG in SYRINGE 1 EACH IV SCH (15:09)
[2017-11-05 15:26] LABS: Hematocrit 27.3 VOL% (42.0-52.0); Hemoglobin 8.9 GM/DL (14.0-18.0)
[2017-11-05] MEDS: ceFAZolin 2,000 MG in PREMIX 1 EACH IV SCH (16:27)
[2017-11-05] MEDS: ENOXAPARIN 40 MG/0.4 ML SYRINGE SUBCUT SCH (21:03)
[2017-11-06] MEDS: SODIUM CHLORIDE 0.9% 1,000 ML IV SCH ×2 (01:10→16:39)
[2017-11-06] MEDS: diphenhydrAMINE 50 MG/1 ML VIAL IV SCH ×4 (01:11→17:56)
[2017-11-06] MEDS: ceFAZolin 2,000 MG in PREMIX 1 EACH IV SCH (01:13)
[2017-11-06] MEDS: methylPREDNISolone SOD SUC 40 MG/1 ML VIAL IV SCH ×2 (05:47→14:35)
[2017-11-06 06:13] LABS: Basophils % 0.1 % (0.0-0.8); Hematocrit 27.3 VOL% (42.0-52.0); Hemoglobin 8.9 GM/DL (14.0-18.0); Immature Granulocytes % 0.7 %; Immature Granulocytes Absolute 0.08 #; Lymphocytes % 8.9 % (21.2-54.2); Mean Corpuscular HGB Conc 32.6 GM/DL (32-36); Mean Corpuscular Hemoglobin 27 PG (27-34); Mean Corpuscular Volume 82.2 FL (87-102); Mean Platelet Volume 10.9 FL (9.6-12.0); Monocytes # 1.2 10*3/uL (0.11-0.8); Neutrophils # 9.3 10*3/uL (1.4-7.4); Neutrophils % 80.3 % (38.7-73.9); Platelet Count 274 T/CUMM (130-400); Red Blood Count 3.32 MC/CUMM (3.8-5.5); Red Cell Distribution Width 15.4 % (9.3-17.3); White Blood Count 11.6 T/CUMM (4-12)
[2017-11-06 06:57] LABS: Albumin 1.4 G/DL (3.4-5.0); Bilirubin,Total 0.4 MG/DL (0.2-1.0); Calcium 8.7 MG/DL (8.5-10.1); Osmolality,Calculated 287.4 MOS/KG (273-304); Potassium 4.8 MMOL/L (3.5-5.1); Total Protein 5.9 G/DL (6.4-8.3)
[2017-11-06] MEDS: INSULIN REGULAR 100 UNIT/ML SUBCUT SCH ×4 (07:52→21:47)
[2017-11-06 08:17] LABS: Immuno Free Light Chain Kappa 20.97 MG/DL (0.33-1.94); Immuno Free Light Chain Lambda 9.62 MG/DL (0.57-2.63); Immuno Free Light Chain Ratio 2.18 MG/DL (0.26-1.65)
[2017-11-06] MEDS: INSULIN GLARGINE 100 UNIT/ML SUBCUT SCH (08:56)
[2017-11-06] MEDS: CARVEDILOL 6.25 MG TABLET PO SCH ×2 (08:57→16:40)
[2017-11-06] MEDS: SILVER SULFADIAZINE 1% CREAM 400 GM JAR TOP SCH (08:57)
[2017-11-06] MEDS: CLOPIDOGREL 75 MG TABLET PO SCH (08:57)
[2017-11-06] MEDS: PENTOXIFYLLINE 400 MG TABLET PO SCH ×3 (08:57→20:25)
[2017-11-06] MEDS: ROSUVASTATIN 20 MG TABLET PO SCH (08:57)
[2017-11-06] MEDS: INSULIN LISPRO 100 UNIT/ML SUBCUT SCH ×3 (08:57→16:39)
[2017-11-06] MEDS: PANTOPRAZOLE 40 MG TABLET PO SCH (08:57)
[2017-11-06] MEDS ORDERED: SILVER SULFADIAZINE 1% CREAM 25 GM TUBE TOP SCH (09:00)
[2017-11-06] MEDS: oxyCODONE/ACETAMINOPHEN 5-325 MG TABLET PO PRN (10:21)
[2017-11-06] MEDS ORDERED: TUBERCULIN SKIN TEST 0.1 ML SYRINGE INTRADERM ONE (13:54)
[2017-11-06] MEDS: cefTRIAXone 1,000 MG in SYRINGE 1 EACH IV SCH (14:34)
[2017-11-06 18:16] LABS: TB Ag minue Nil Result -0.01 IU/mL
[2017-11-06 18:28] LABS: Collection Time,Urine 24 HOURS; Total Protein 24 Hr Ur Result 881 MG/24HR (0-149.1); Total Volume,Urine 2050 ML (400-2000)
[2017-11-06] MEDS: HYDROmorphone 2 MG/1 ML VIAL IV PRN (20:25)
[2017-11-06] MEDS: ENOXAPARIN 40 MG/0.4 ML SYRINGE SUBCUT SCH (20:25)
[2017-11-07] MEDS: diphenhydrAMINE 50 MG/1 ML VIAL IV SCH ×5 (00:31→23:33)
[2017-11-07] MEDS: methylPREDNISolone SOD SUC 40 MG/1 ML VIAL IV SCH ×4 (00:33→21:38)
[2017-11-07] MEDS: SODIUM CHLORIDE 0.9% 1,000 ML IV SCH ×2 (05:15→21:36)
[2017-11-07 06:19] LABS: Basophils % 0.1 % (0.0-0.8); Eosinophils # 0.1 10*3/uL (0.0-0.87); Hematocrit 28.7 VOL% (42.0-52.0); Hemoglobin 9.1 GM/DL (14.0-18.0); Immature Granulocytes % 1.5 %; Immature Granulocytes Absolute 0.17 #; Lymphocytes # 1.7 10*3/uL (1.4-4.0); Lymphocytes % 15.1 % (21.2-54.2); Mean Corpuscular HGB Conc 31.7 GM/DL (32-36); Mean Corpuscular Hemoglobin 26 PG (27-34); Mean Corpuscular Volume 83.2 FL (87-102); Mean Platelet Volume 10.5 FL (9.6-12.0); Monocytes # 1.6 10*3/uL (0.11-0.8); Monocytes % 14.3 % (1.7-12.7); Neutrophils # 7.6 10*3/uL (1.4-7.4); Platelet Count 276 T/CUMM (130-400); Red Blood Count 3.45 MC/CUMM (3.8-5.5); Red Cell Distribution Width 15.6 % (9.3-17.3); White Blood Count 11.2 T/CUMM (4-12)
[2017-11-07 06:52] LABS: Albumin 1.5 G/DL (3.4-5.0); Bilirubin,Total 0.7 MG/DL (0.2-1.0); Calcium 8.8 MG/DL (8.5-10.1); Osmolality,Calculated 294.3 MOS/KG (273-304); Total Protein 5.5 G/DL (6.4-8.3)
[2017-11-07] MEDS: oxyCODONE/ACETAMINOPHEN 5-325 MG TABLET PO PRN (09:13)
[2017-11-07] MEDS: DOCUSATE SODIUM 100 MG CAPSULE PO PRN (09:14)
[2017-11-07] MEDS: PANTOPRAZOLE 40 MG TABLET PO SCH (09:14)
[2017-11-07] MEDS: ROSUVASTATIN 20 MG TABLET PO SCH (09:14)
[2017-11-07] MEDS: INSULIN LISPRO 100 UNIT/ML SUBCUT SCH ×3 (09:14→16:44)
[2017-11-07] MEDS: INSULIN REGULAR 100 UNIT/ML SUBCUT SCH ×4 (09:14→21:44)
[2017-11-07] MEDS: PENTOXIFYLLINE 400 MG TABLET PO SCH ×3 (09:14→20:29)
[2017-11-07] MEDS: INSULIN GLARGINE 100 UNIT/ML SUBCUT SCH (09:14)
[2017-11-07] MEDS: SILVER SULFADIAZINE 1% CREAM 400 GM JAR TOP SCH (09:14)
[2017-11-07] MEDS: CARVEDILOL 6.25 MG TABLET PO SCH ×2 (09:14→16:44)
[2017-11-07] MEDS: CLOPIDOGREL 75 MG TABLET PO SCH (09:14)
[2017-11-07 09:57] LABS: 24 Hr Protein (Bench) 881 MG/24HR (0-149.1)
[2017-11-07] MEDS: HYDROmorphone 2 MG/1 ML VIAL IV PRN ×2 (10:01→13:32)
[2017-11-07] MEDS: cefTRIAXone 1,000 MG in SYRINGE 1 EACH IV SCH (13:18)
[2017-11-07] MEDS: ENOXAPARIN 40 MG/0.4 ML SYRINGE SUBCUT SCH (20:29)
[2017-11-08] MEDS: methylPREDNISolone SOD SUC 40 MG/1 ML VIAL IV SCH ×3 (05:28→21:41)
[2017-11-08] MEDS: diphenhydrAMINE 50 MG/1 ML VIAL IV SCH ×4 (05:30→23:39)
[2017-11-08 05:47] LABS: Basophils % 0.1 % (0.0-0.8); Eosinophils % 0.2 % (0.00-10.9); Hematocrit 26.6 VOL% (42.0-52.0); Hemoglobin 8.3 GM/DL (14.0-18.0); Immature Granulocytes % 1.9 %; Immature Granulocytes Absolute 0.24 #; Lymphocytes # 1.4 10*3/uL (1.4-4.0); Lymphocytes % 10.7 % (21.2-54.2); Mean Corpuscular HGB Conc 31.2 GM/DL (32-36); Mean Corpuscular Hemoglobin 26 PG (27-34); Mean Corpuscular Volume 84.2 FL (87-102); Mean Platelet Volume 10.5 FL (9.6-12.0); Monocytes # 1.5 10*3/uL (0.11-0.8); Monocytes % 11.5 % (1.7-12.7); Neutrophils # 9.5 10*3/uL (1.4-7.4); Neutrophils % 75.6 % (38.7-73.9); Platelet Count 299 T/CUMM (130-400); Red Blood Count 3.16 MC/CUMM (3.8-5.5); Red Cell Distribution Width 15.5 % (9.3-17.3); White Blood Count 12.6 T/CUMM (4-12)
[2017-11-08 06:23] LABS: Calcium 8.4 MG/DL (8.5-10.1); Osmolality,Calculated 293.3 MOS/KG (273-304)
[2017-11-08] MEDS: ROSUVASTATIN 20 MG TABLET PO SCH (08:52)
[2017-11-08] MEDS: INSULIN REGULAR 100 UNIT/ML SUBCUT SCH ×4 (08:52→21:40)
[2017-11-08] MEDS: INSULIN GLARGINE 100 UNIT/ML SUBCUT SCH (08:52)
[2017-11-08] MEDS: CLOPIDOGREL 75 MG TABLET PO SCH (08:53)
[2017-11-08] MEDS: PENTOXIFYLLINE 400 MG TABLET PO SCH ×3 (08:53→20:57)
[2017-11-08] MEDS: PANTOPRAZOLE 40 MG TABLET PO SCH (08:53)
[2017-11-08] MEDS: SILVER SULFADIAZINE 1% CREAM 400 GM JAR TOP SCH (08:53)
[2017-11-08] MEDS: INSULIN LISPRO 100 UNIT/ML SUBCUT SCH ×3 (08:53→17:30)
[2017-11-08] MEDS: CARVEDILOL 6.25 MG TABLET PO SCH ×2 (08:53→17:30)
[2017-11-08] MEDS: oxyCODONE/ACETAMINOPHEN 5-325 MG TABLET PO PRN (08:56)
[2017-11-08] MEDS: SODIUM CHLORIDE 0.9% 1,000 ML IV SCH (12:31)
[2017-11-08] MEDS: cefTRIAXone 1,000 MG in SYRINGE 1 EACH IV SCH (14:55)
[2017-11-08] MEDS: DOCUSATE SODIUM 100 MG CAPSULE PO PRN (20:57)
[2017-11-08] MEDS: MAGNESIUM HYDROXIDE SUSP 30 ML UDCUP PO PRN (20:58)
[2017-11-08] MEDS: ENOXAPARIN 40 MG/0.4 ML SYRINGE SUBCUT SCH (20:59)
[2017-11-09] MEDS: SODIUM CHLORIDE 0.9% 1,000 ML IV SCH (01:14)
[2017-11-09] MEDS: methylPREDNISolone SOD SUC 40 MG/1 ML VIAL IV SCH (05:44)
[2017-11-09] MEDS: diphenhydrAMINE 50 MG/1 ML VIAL IV SCH (05:46)
[2017-11-09] MEDS: PENTOXIFYLLINE 400 MG TABLET PO SCH (08:29)
[2017-11-09] MEDS: oxyCODONE/ACETAMINOPHEN 5-325 MG TABLET PO PRN (08:29)
[2017-11-09] MEDS: CARVEDILOL 6.25 MG TABLET PO SCH (08:29)
[2017-11-09] MEDS: INSULIN GLARGINE 100 UNIT/ML SUBCUT SCH (09:07)
[2017-11-09] MEDS: INSULIN REGULAR 100 UNIT/ML SUBCUT SCH (09:07)
[2017-11-09] MEDS: INSULIN LISPRO 100 UNIT/ML SUBCUT SCH (09:07)
[2017-11-09] MEDS: CLOPIDOGREL 75 MG TABLET PO SCH (09:08)
[2017-11-09] MEDS: ROSUVASTATIN 20 MG TABLET PO SCH (09:08)
[2017-11-09] MEDS: SILVER SULFADIAZINE 1% CREAM 400 GM JAR TOP SCH (09:08)
[2017-11-09] MEDS: PANTOPRAZOLE 40 MG TABLET PO SCH (09:08)
[2017-11-09 12:26] VITALS: BP 163/89
[2017-11-14 07:46] LABS: Cryoglobulin, S Negative %ppt (Negative)
== END 2017-11-09 13:26 | disposition swing bed (61) | DRG 854 ==
LOC: EDUNIT# → EDBD → N.ED 18:44 → SUATTDRO 20:54 → N.EDINP 20:54 → N.5E 22:17
PROVIDERS: ADMIT Internal Medicine; ATTEND Internal Medicine